=== PATIENT | male | born 1970 | race Caucasian/White ===

== ENCOUNTER 2019-05-04 13:21 | Inpatient (IN) | payer BC ==
[~2019-05-04] VITALS: Ht 170.2 cm; Wt 90.7 kg
[2019-05-04] MEDS ORDERED: IV NORMAL SALINE 1000ML BAG 1,000 ML IV SCH (13:35)
[2019-05-04 13:54] LABS: BASO % 1 % (0-3); EOS # 0.1 x10^3/uL (0.0-0.7); EOS % 1 % (0-3); HEMATOCRIT 40.3 % (39.0-53.0); HEMOGLOBIN 13.9 g/dL (13.0-17.5); LYMPH # 2.6 x10^3/uL (1.0-4.8); LYMPH % 58 % (24-48); MEAN CORPUSCULAR HEMOGLOBIN 35 pg (25-35); MEAN CORPUSCULAR HGB CONC 35 g/dL (31-37); MEAN CORPUSCULAR VOLUME 101 fL (79-100); MONO # 0.3 x10^3/uL (0.0-1.1); MONO % 6 % (0-9); NEUT # 1.5 x10^3/uL (1.8-7.7); NEUT % 34 % (31-73); PLATELET COUNT 280 x10^3/uL (140-400); RED CELL DISTRIBUTION WIDTH 15.5 % (11.5-14.5); WHITE BLOOD COUNT 4.5 x10^3/uL (4.0-11.0)
[2019-05-04 13:57] LABS: CALCIUM 8.5 mg/dL (8.5-10.1); CREATININE 1.1 mg/dL (0.7-1.3); GFR 70.9; POTASSIUM 3.8 mmol/L (3.5-5.1)
[2019-05-04 14:03] LABS: ALBUMIN/GLOBULIN RATIO 0.8 (1.0-1.7); TOTAL BILIRUBIN 0.4 mg/dL (0.2-1.0); TOTAL PROTEIN 6.8 g/dL (6.4-8.2)
--- NOTE | 2019-05-04 14:42 | PHYS DOC ---
Past Medical History Past Medical History: No Pertinent History, Other Additional Past Medical Histor: UNKNOWN Past Surgical History: Other Additional Past Surgical Histo: UNKNOWN Alcohol Use: Heavy Drug Use: None Adult General Chief Complaint Chief Complaint: ALCOHOL INTOXICATION HPI HPI Patient is a 49-year-old male who presents via EMS with report of alcohol intoxication and complaints of chest discomfort. Upon arrival, patient indicating that he is not having any chest pain but he is having some epigastric abdominal discomfort. He rates that pain is very mild. He denies any nausea or vomiting. He does admit to having drank quite a bit of alcohol but states that it was less than a pint of vodka. He denies any nausea or vomiting. Additional history is limited as patient is intoxicated and is poor historian.[] Review of Systems Review of Systems Constitutional: Denies fever or chills [] Respiratory: Denies cough or shortness of breath [] Cardiovascular: No additional information not addressed in HPI [] GI: Complains of epigastric pain without vomiting or diarrhea [] Integument: Denies rash or skin lesions [] Neurologic: Denies headache, focal weakness or sensory changes [] All other systems were reviewed and found to be within normal limits, except as documented in this note. Current Medications Current Medications Current Medications Medications (Trade) Dose Ordered Sig/Ranjeet Start Time Stop Time Status Last Admin Dose Admin Lorazepam (Ativan Inj) 1 mg 1X ONCE 05/04/19 15:30 05/04/19 15:31 DC 05/04/19 15:49 1 MG Sodium Chloride 1,000 ml @ 1,000 mls/hr Q1H 05/04/19 13:35 05/04/19 14:34 DC 05/04/19 13:55 1,000 MLS/HR Allergies Allergies Allergies Coded Allergies Type Severity Reaction Last Updated Verified No Known Drug Allergies 05/04/19 No Physical Exam Physical Exam Constitutional: Well developed, well nourished, no acute distress, with strong smell of alcohol on breath. [] HENT: Normocephalic, atraumatic, bilateral external ears normal, oropharynx moist, no oral exudates, nose normal. [] Eyes: PERRLA, EOMI, conjunctiva normal, no discharge. [] Neck: Normal range of motion, no tenderness, supple, no stridor. [] Cardiovascular: Regular rate and rhythm[] Lungs & Thorax: Bilateral breath sounds clear to auscultation [] Abdomen: Bowel sounds normal, soft, with mild epigastric tenderness. [] Skin: Warm, dry, no erythema, no rash. [] Extremities: No tenderness, no cyanosis, no clubbing, ROM intact. [] Neurologic: Awake and alert, no focal deficits noted. [] Current Patient Data Vital Signs Vital Signs Date Time Temp Pulse Resp B/P (MAP) Pulse Ox O2 Delivery O2 Flow Rate FiO2 05/04/19 13:21 97.9 94 16 149/57 (87) 94 Room Air 97.9 Lab Values Laboratory Tests Test 05/04/19 13:30 White Blood Count 4.5 x10^3/uL (4.0-11.0) Red Blood Count 4.00 x10^6/uL (4.30-5.70) L Hemoglobin 13.9 g/dL (13.0-17.5) Hematocrit 40.3 % (39.0-53.0) Mean Corpuscular Volume 101 fL (79-100) H Mean Corpuscular Hemoglobin 35 pg (25-35) Mean Corpuscular Hemoglobin Concent 35 g/dL (31-37) Red Cell Distribution Width 15.5 % (11.5-14.5) H Platelet Count 280 x10^3/uL (140-400) Neutrophils (%) (Auto) 34 % (31-73) Lymphocytes (%) (Auto) 58 % (24-48) H Monocytes (%) (Auto) 6 % (0-9) Eosinophils (%) (Auto) 1 % (0-3) Basophils (%) (Auto) 1 % (0-3) Neutrophils # (Auto) 1.5 x10^3/uL (1.8-7.7) L Lymphocytes # (Auto) 2.6 x10^3/uL (1.0-4.8) Monocytes # (Auto) 0.3 x10^3/uL (0.0-1.1) Eosinophils # (Auto) 0.1 x10^3/uL (0.0-0.7) Basophils # (Auto) 0.0 x10^3/uL (0.0-0.2) Sodium Level 144 mmol/L (136-145) Potassium Level 3.8 mmol/L (3.5-5.1) Chloride Level 109 mmol/L (98-107) H Carbon Dioxide Level 25 mmol/L (21-32) Anion Gap 10 (6-14) Blood Urea Nitrogen 13 mg/dL (8-26) Creatinine 1.1 mg/dL (0.7-1.3) Estimated GFR (Cockcroft-Gault) 70.9 BUN/Creatinine Ratio 12 (6-20) Glucose Level 121 mg/dL (70-99) H Calcium Level 8.5 mg/dL (8.5-10.1) Total Bilirubin 0.4 mg/dL (0.2-1.0) Aspartate Amino Transferase (AST) 23 U/L (15-37) Alanine Aminotransferase (ALT) 34 U/L (16-63) Alkaline Phosphatase 62 U/L (46-116) Ammonia 64 mcmol/L (11-34) H Total Protein 6.8 g/dL (6.4-8.2) Albumin 3.0 g/dL (3.4-5.0) L Albumin/Globulin Ratio 0.8 (1.0-1.7) L Lipase 115 U/L (73-393) Ethyl Alcohol Level 463 mg/dL (0-10) *H Laboratory Tests 05/04/19 13:30 Laboratory Tests 05/04/19 13:30 EKG EKG [] Radiology/Procedures Radiology/Procedures [] Course & Med Decision Making Course & Med Decision Making Pertinent Labs and Imaging studies reviewed. (See chart for details) [] Dragon Disclaimer Dragon Disclaimer This electronic medical record was generated, in whole or in part, using a voice recognition dictation system. Departure Departure Impression: Primary Impression: Hepatic encephalopathy Additional Impression: Alcohol intoxication Disposition: 09 ADMITTED INPATIENT Admitting Physician: LAUREN (Dr. Canales) Condition: GOOD Referrals: ALISSA ANDERSON (PCP) Problem Qualifiers Additional Impression: Alcohol intoxication Complication of substance-induced condition: with unspecified complication Qualified Codes: F10.929 - Alcohol use, unspecified with intoxication, unspecified KRISTINE BAEZ Jr. DO May 04, 2019 14:42
[2019-05-04] MEDS ORDERED: ONDANSETRON PF 4 MG/2 ML VIAL. IV PRN (16:15)
[2019-05-04 16:24] LABS: PROTHROMBIN TIME PATIENT 12.1 SEC (11.7-14.0)
[2019-05-04 18:49] VITALS: BP 141/73
--- NOTE | 2019-05-04 20:34 | HP ---
ADMIT DATE: 05/04/2019 CHIEF COMPLAINT: Alcohol intoxication. HISTORY OF PRESENT ILLNESS: The patient is a pleasant 49-year-old male who presented to the ER with alcohol intoxication. He apparently had some chest discomfort. I think his parents brought him in. When he got here, he has got an alcohol level of 463. He indeed is drunk. His cardiac enzymes are negative. He is a little agitated, but given some Ativan. Now, he is snoring. I discussed the case with ER physician. We are going to admit the patient and do alcohol protocol. PAST MEDICAL HISTORY: Alcoholism, but apparently he does not drink regularly, but his dad states he has binges. ALLERGIES: None. FAMILY HISTORY: Hypertension. SOCIAL HISTORY: Apparently, he drinks vodka, but intermittently. 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 He lives at home with his parents, I believe. MEDICATIONS: Reviewed, please refer to the MRAD. REVIEW OF SYSTEMS: Unable to obtain. The patient is sleeping. PHYSICAL EXAMINATION: VITALS: Within normal limits and are stable. GENERAL: No apparent distress. Alert and oriented. HEENT: Head is normocephalic, atraumatic, pupils were equally round and reactive to light and accommodation. NECK: Supple, no JVD, no thyromegaly was noted. LUNGS: Clear to auscultation in all lung vera without rhonchi or wheezing. HEART: RRR, S1, S2 present. Peripheral pulses intact, no obvious murmurs were noted. ABDOMEN: Soft, nontender. Positive bowel sounds no organomegaly, normal bowel sounds. EXTREMITIES: Without any cyanosis, clubbing, or edema. Pedal pulses intact, Homans sign is negative. NEUROLOGIC: He is snoring. PSYCHIATRIC: Normal affect, normal mood. Stable. SKIN: No ulcerations or rashes, good skin turgor, no jaundice. VASCULAR: Good capillary refill, neurovascular bundle appears to be intact. LABORATORY DATA: His INR is 1 and his ammonia level was 64. The patient has been admitted. ASSESSMENT AND PLAN: Alcohol intoxication and elevated ammonia level. Perhaps he may have an element of hepatic encephalopathy. We will use p.r.n. benzos. DVT prophylaxis. Home meds, IV fluids, full code, q. 4 hours neuro checks. I talked to the nurse few minutes ago. He is apparently not satting in the dilan, he is in the 80s. We are going to try some BiPAP too. NATHAN PATRICIA DO DR: SISSY/charleen JOB#: [id number] / [id number]
[2019-05-04] MEDS: LACTOBACILLUS RHAMNOSUS GG 1 CAPSULE. PO SCH (20:52)
[2019-05-04] MEDS: IV NORMAL SALINE 1000ML BAG 1,000 ML IV SCH (20:52)
[2019-05-04 23:12] VITALS: BP 125/79
[2019-05-05] MEDS ORDERED: metoprolol (00:02)
[2019-05-05] MEDS ORDERED: citalopram (00:02)
[2019-05-05] MEDS ORDERED: AMLODIP (00:02)
[2019-05-05] MEDS: IV NORMAL SALINE 1000ML BAG 1,000 ML IV SCH ×2 (00:15→08:44)
[2019-05-05 03:25] VITALS: BP 103/55
[2019-05-05 06:34] LABS: BASO % 1 % (0-3); EOS % 0 % (0-3); HEMATOCRIT 39.1 % (39.0-53.0); HEMOGLOBIN 13.3 g/dL (13.0-17.5); LYMPH # 2.6 x10^3/uL (1.0-4.8); LYMPH % 41 % (24-48); MEAN CORPUSCULAR HEMOGLOBIN 35 pg (25-35); MEAN CORPUSCULAR HGB CONC 34 g/dL (31-37); MEAN CORPUSCULAR VOLUME 102 fL (79-100); MONO # 0.3 x10^3/uL (0.0-1.1); MONO % 4 % (0-9); NEUT # 3.4 x10^3/uL (1.8-7.7); NEUT % 54 % (31-73); PLATELET COUNT 265 x10^3/uL (140-400); RED BLOOD COUNT 3.83 x10^6/uL (4.30-5.70); RED CELL DISTRIBUTION WIDTH 15.7 % (11.5-14.5); WHITE BLOOD COUNT 6.4 x10^3/uL (4.0-11.0)
[2019-05-05 06:55] LABS: CREATININE 1.1 mg/dL (0.7-1.3); GFR 70.9; POTASSIUM 3.8 mmol/L (3.5-5.1)
[2019-05-05 07:00] VITALS: BP 141/82
[2019-05-05] MEDS: LACTOBACILLUS RHAMNOSUS GG 1 CAPSULE. PO SCH ×2 (08:44→20:46)
--- NOTE | 2019-05-05 10:36 | PDOC ---
PROGRESS NOTES History of Present Illness History of Present Illness ASSESSMENT AND PLAN: severe alcohol abuse Alcohol intoxication elevated ammonia level. hepatic encephalopathy. acute hypoxic resp failure DEPRESSION HYPERTENSION admit p.r.n. benzos. DVT prophylaxis. Home meds, IV fluids, full code, q. 4 hours neuro checks. BiPAP support ALCOHOL WITHDRAWAL PROTOCOL ABD SONO LACTULOSE 20CC BID GI CONSULT long discussion in room with parents and sister, need for treatment, AA// PAT TEAM CONSULT 38 min pt exam, chart review, > 50% of time spent with exam, chart review, pt care coordination Vitals Vitals Vital Signs Date Time Temp Pulse Resp B/P (MAP) Pulse Ox O2 Delivery O2 Flow Rate FiO2 05/05/19 08:00 Room Air 05/05/19 07:00 97.7 97 16 141/82 (101) 99 3.0 97.7 Physical Exam Physical Exam GENERAL: No apparent distress. Alert and oriented. SAD AFFECT HEENT: Head is normocephalic, atraumatic, pupils were equally round and reactive to light and accommodation. NECK: Supple, no JVD, no thyromegaly was noted. LUNGS: Clear to auscultation in all lung vera without rhonchi or wheezing. HEART: RRR, S1, S2 present. Peripheral pulses intact, no obvious murmurs were noted. ABDOMEN: Soft, nontender. Positive bowel sounds no organomegaly, normal bowel sounds. EXTREMITIES: Without any cyanosis, clubbing, or edema. Pedal pulses intact, Homans sign is negative. NEUROLOGIC: He is snoring. PSYCHIATRIC: Normal affect, normal mood. Stable. SKIN: No ulcerations or rashes, good skin turgor, no jaundice. VASCULAR: Good capillary refill, neurovascular bundle appears to be intact. General: Alert, Oriented X3, Cooperative, No acute distress Heart: Regular rate, Normal S1, Normal S2, No murmurs Lungs: Clear Abdomen: Normal bowel sounds, Soft, No tenderness Extremities: No cyanosis Labs LABS Laboratory Tests Test 05/04/19 13:30 05/04/19 18:34 05/05/19 05:18 White Blood Count 4.5 x10^3/uL (4.0-11.0) 6.4 x10^3/uL (4.0-11.0) Red Blood Count 4.00 x10^6/uL (4.30-5.70) 3.83 x10^6/uL (4.30-5.70) Hemoglobin 13.9 g/dL (13.0-17.5) 13.3 g/dL (13.0-17.5) Hematocrit 40.3 % (39.0-53.0) 39.1 % (39.0-53.0) Mean Corpuscular Volume 101 fL (79-100) 102 fL (79-100) Mean Corpuscular Hemoglobin 35 pg (25-35) 35 pg (25-35) Mean Corpuscular Hemoglobin Concent 35 g/dL (31-37) 34 g/dL (31-37) Red Cell Distribution Width 15.5 % (11.5-14.5) 15.7 % (11.5-14.5) Platelet Count 280 x10^3/uL (140-400) 265 x10^3/uL (140-400) Neutrophils (%) (Auto) 34 % (31-73) 54 % (31-73) Lymphocytes (%) (Auto) 58 % (24-48) 41 % (24-48) Monocytes (%) (Auto) 6 % (0-9) 4 % (0-9) Eosinophils (%) (Auto) 1 % (0-3) 0 % (0-3) Basophils (%) (Auto) 1 % (0-3) 1 % (0-3) Neutrophils # (Auto) 1.5 x10^3/uL (1.8-7.7) 3.4 x10^3/uL (1.8-7.7) Lymphocytes # (Auto) 2.6 x10^3/uL (1.0-4.8) 2.6 x10^3/uL (1.0-4.8) Monocytes # (Auto) 0.3 x10^3/uL (0.0-1.1) 0.3 x10^3/uL (0.0-1.1) Eosinophils # (Auto) 0.1 x10^3/uL (0.0-0.7) 0.0 x10^3/uL (0.0-0.7) Basophils # (Auto) 0.0 x10^3/uL (0.0-0.2) 0.0 x10^3/uL (0.0-0.2) Prothrombin Time 12.1 SEC (11.7-14.0) Prothromb Time International Ratio 0.9 (0.8-1.1) Sodium Level 144 mmol/L (136-145) 148 mmol/L (136-145) Potassium Level 3.8 mmol/L (3.5-5.1) 3.8 mmol/L (3.5-5.1) Chloride Level 109 mmol/L (98-107) 112 mmol/L (98-107) Carbon Dioxide Level 25 mmol/L (21-32) 26 mmol/L (21-32) Anion Gap 10 (6-14) 10 (6-14) Blood Urea Nitrogen 13 mg/dL (8-26) 18 mg/dL (8-26) Creatinine 1.1 mg/dL (0.7-1.3) 1.1 mg/dL (0.7-1.3) Estimated GFR (Cockcroft-Gault) 70.9 70.9 BUN/Creatinine Ratio 12 (6-20) Glucose Level 121 mg/dL (70-99) 95 mg/dL (70-99) Calcium Level 8.5 mg/dL (8.5-10.1) 8.0 mg/dL (8.5-10.1) Total Bilirubin 0.4 mg/dL (0.2-1.0) Aspartate Amino Transf (AST/SGOT) 23 U/L (15-37) Alanine Aminotransferase (ALT/SGPT) 34 U/L (16-63) Alkaline Phosphatase 62 U/L (46-116) Ammonia 64 mcmol/L (11-34) Total Protein 6.8 g/dL (6.4-8.2) Albumin 3.0 g/dL (3.4-5.0) Albumin/Globulin Ratio 0.8 (1.0-1.7) Lipase 115 U/L (73-393) Ethyl Alcohol Level 463 mg/dL (0-10) Glucose (Fingerstick) 250 mg/dL (70-99) Assessment and Plan Assessmemt and Plan Problems Medical Problems: (1) Alcohol intoxication Status: Acute (2) Hepatic encephalopathy Status: Acute Comment Review of Relevant I have reviewed the following items jj (where applicable) has been applied. Labs Laboratory Tests Test 05/04/19 13:30 05/04/19 18:34 05/05/19 05:18 White Blood Count 4.5 x10^3/uL (4.0-11.0) 6.4 x10^3/uL (4.0-11.0) Red Blood Count 4.00 x10^6/uL (4.30-5.70) 3.83 x10^6/uL (4.30-5.70) Hemoglobin 13.9 g/dL (13.0-17.5) 13.3 g/dL (13.0-17.5) Hematocrit 40.3 % (39.0-53.0) 39.1 % (39.0-53.0) Mean Corpuscular Volume 101 fL (79-100) 102 fL (79-100) Mean Corpuscular Hemoglobin 35 pg (25-35) 35 pg (25-35) Mean Corpuscular Hemoglobin Concent 35 g/dL (31-37) 34 g/dL (31-37) Red Cell Distribution Width 15.5 % (11.5-14.5) 15.7 % (11.5-14.5) Platelet Count 280 x10^3/uL (140-400) 265 x10^3/uL (140-400) Neutrophils (%) (Auto) 34 % (31-73) 54 % (31-73) Lymphocytes (%) (Auto) 58 % (24-48) 41 % (24-48) Monocytes (%) (Auto) 6 % (0-9) 4 % (0-9) Eosinophils (%) (Auto) 1 % (0-3) 0 % (0-3) Basophils (%) (Auto) 1 % (0-3) 1 % (0-3) Neutrophils # (Auto) 1.5 x10^3/uL (1.8-7.7) 3.4 x10^3/uL (1.8-7.7) Lymphocytes # (Auto) 2.6 x10^3/uL (1.0-4.8) 2.6 x10^3/uL (1.0-4.8) Monocytes # (Auto) 0.3 x10^3/uL (0.0-1.1) 0.3 x10^3/uL (0.0-1.1) Eosinophils # (Auto) 0.1 x10^3/uL (0.0-0.7) 0.0 x10^3/uL (0.0-0.7) Basophils # (Auto) 0.0 x10^3/uL (0.0-0.2) 0.0 x10^3/uL (0.0-0.2) Prothrombin Time 12.1 SEC (11.7-14.0) Prothromb Time International Ratio 0.9 (0.8-1.1) Sodium Level 144 mmol/L (136-145) 148 mmol/L (136-145) Potassium Level 3.8 mmol/L (3.5-5.1) 3.8 mmol/L (3.5-5.1) Chloride Level 109 mmol/L (98-107) 112 mmol/L (98-107) Carbon Dioxide Level 25 mmol/L (21-32) 26 mmol/L (21-32) Anion Gap 10 (6-14) 10 (6-14) Blood Urea Nitrogen 13 mg/dL (8-26) 18 mg/dL (8-26) Creatinine 1.1 mg/dL (0.7-1.3) 1.1 mg/dL (0.7-1.3) Estimated GFR (Cockcroft-Gault) 70.9 70.9 BUN/Creatinine Ratio 12 (6-20) Glucose Level 121 mg/dL (70-99) 95 mg/dL (70-99) Calcium Level 8.5 mg/dL (8.5-10.1) 8.0 mg/dL (8.5-10.1) Total Bilirubin 0.4 mg/dL (0.2-1.0) Aspartate Amino Transf (AST/SGOT) 23 U/L (15-37) Alanine Aminotransferase (ALT/SGPT) 34 U/L (16-63) Alkaline Phosphatase 62 U/L (46-116) Ammonia 64 mcmol/L (11-34) Total Protein 6.8 g/dL (6.4-8.2) Albumin 3.0 g/dL (3.4-5.0) Albumin/Globulin Ratio 0.8 (1.0-1.7) Lipase 115 U/L (73-393) Ethyl Alcohol Level 463 mg/dL (0-10) Glucose (Fingerstick) 250 mg/dL (70-99) Laboratory Tests Test 05/04/19 13:30 05/04/19 18:34 05/05/19 05:18 White Blood Count 4.5 x10^3/uL (4.0-11.0) 6.4 x10^3/uL (4.0-11.0) Red Blood Count 4.00 x10^6/uL (4.30-5.70) 3.83 x10^6/uL (4.30-5.70) Hemoglobin 13.9 g/dL (13.0-17.5) 13.3 g/dL (13.0-17.5) Hematocrit 40.3 % (39.0-53.0) 39.1 % (39.0-53.0) Mean Corpuscular Volume 101 fL (79-100) 102 fL (79-100) Mean Corpuscular Hemoglobin 35 pg (25-35) 35 pg (25-35) Mean Corpuscular Hemoglobin Concent 35 g/dL (31-37) 34 g/dL (31-37) Red Cell Distribution Width 15.5 % (11.5-14.5) 15.7 % (11.5-14.5) Platelet Count 280 x10^3/uL (140-400) 265 x10^3/uL (140-400) Neutrophils (%) (Auto) 34 % (31-73) 54 % (31-73) Lymphocytes (%) (Auto) 58 % (24-48) 41 % (24-48) Monocytes (%) (Auto) 6 % (0-9) 4 % (0-9) Eosinophils (%) (Auto) 1 % (0-3) 0 % (0-3) Basophils (%) (Auto) 1 % (0-3) 1 % (0-3) Neutrophils # (Auto) 1.5 x10^3/uL (1.8-7.7) 3.4 x10^3/uL (1.8-7.7) Lymphocytes # (Auto) 2.6 x10^3/uL (1.0-4.8) 2.6 x10^3/uL (1.0-4.8) Monocytes # (Auto) 0.3 x10^3/uL (0.0-1.1) 0.3 x10^3/uL (0.0-1.1) Eosinophils # (Auto) 0.1 x10^3/uL (0.0-0.7) 0.0 x10^3/uL (0.0-0.7) Basophils # (Auto) 0.0 x10^3/uL (0.0-0.2) 0.0 x10^3/uL (0.0-0.2) Prothrombin Time 12.1 SEC (11.7-14.0) Prothromb Time International Ratio 0.9 (0.8-1.1) Sodium Level 144 mmol/L (136-145) 148 mmol/L (136-145) Potassium Level 3.8 mmol/L (3.5-5.1) 3.8 mmol/L (3.5-5.1) Chloride Level 109 mmol/L (98-107) 112 mmol/L (98-107) Carbon Dioxide Level 25 mmol/L (21-32) 26 mmol/L (21-32) Anion Gap 10 (6-14) 10 (6-14) Blood Urea Nitrogen 13 mg/dL (8-26) 18 mg/dL (8-26) Creatinine 1.1 mg/dL (0.7-1.3) 1.1 mg/dL (0.7-1.3) Estimated GFR (Cockcroft-Gault) 70.9 70.9 BUN/Creatinine Ratio 12 (6-20) Glucose Level 121 mg/dL (70-99) 95 mg/dL (70-99) Calcium Level 8.5 mg/dL (8.5-10.1) 8.0 mg/dL (8.5-10.1) Total Bilirubin 0.4 mg/dL (0.2-1.0) Aspartate Amino Transf (AST/SGOT) 23 U/L (15-37) Alanine Aminotransferase (ALT/SGPT) 34 U/L (16-63) Alkaline Phosphatase 62 U/L (46-116) Ammonia 64 mcmol/L (11-34) Total Protein 6.8 g/dL (6.4-8.2) Albumin 3.0 g/dL (3.4-5.0) Albumin/Globulin Ratio 0.8 (1.0-1.7) Lipase 115 U/L (73-393) Ethyl Alcohol Level 463 mg/dL (0-10) Glucose (Fingerstick) 250 mg/dL (70-99) Medications Current Medications Sodium Chloride 1,000 ml @ 1,000 mls/hr Q1H IV Last administered on 05/04/19at 13:55; Start 05/04/19 at 13:35; Stop 05/04/19 at 14:34; Status DC Lorazepam (Ativan Inj) 1 mg 1X ONCE IV Last administered on 05/04/19at 15:49; Start 05/04/19 at 15:30; Stop 05/04/19 at 15:31; Status DC Ondansetron HCl (Zofran) 4 mg PRN Q8HRS PRN IV NAUSEA/VOMITING; Start 05/04/19 at 16:15; Stop 05/05/19 at 16:14 Sodium Chloride 1,000 ml @ 125 mls/hr Q8H IV Last administered on 05/05/19at 08:44; Start 05/04/19 at 16:15; Stop 05/05/19 at 16:14 Lactobacillus Rhamnosus (Culturelle) 1 cap BID PO Last administered on 05/05/19at 08:44; Start 05/04/19 at 21:00 Active Scripts Active Reported [citalopram] DAILY [amlodip] DAILY [metoprolol] BID Vitals/I & O Vital Sign - Last 24 Hours 05/04/19 05/04/19 05/04/19 05/04/19 13:21 14:30 15:00 16:00 Temp 97.9 97.9 Pulse 94 88 92 91 Resp 16 22 20 22 B/P (MAP) 149/57 (87) 135/84 (101) 137/94 (108) 124/75 (91) Pulse Ox 94 91 95 94 O2 Delivery Room Air Room Air Room Air Room Air 05/04/19 05/04/19 05/04/19 05/04/19 16:30 16:55 17:01 18:49 Temp 97.6 97.6 Pulse 87 113 Resp 18 22 20 18 B/P (MAP) 130/78 (95) 141/73 (95) Pulse Ox 95 69 92 93 O2 Delivery Room Air Nasal Cannula Nasal Cannula Nasal Cannula O2 Flow Rate 2.0 2.0 3.0 05/04/19 05/04/19 05/05/19 05/05/19 20:00 23:12 03:25 07:00 Temp 97.7 97.6 97.7 97.7 97.6 97.7 Pulse 89 93 97 Resp 20 20 16 B/P (MAP) 125/79 (94) 103/55 (71) 141/82 (101) Pulse Ox 96 95 99 O2 Delivery Nasal Cannula Nasal Cannula Nasal Cannula Nasal Cannula O2 Flow Rate 3.0 3.0 3.0 3.0 05/05/19 08:00 O2 Delivery Room Air Intake and Output 05/04/19 05/04/19 05/05/19 14:59 22:59 06:59 Intake Total 1000 ml 50 ml 400 ml Balance 1000 ml 50 ml 400 ml MARLENE CUETO MD May 05, 2019 10:36
[2019-05-05 11:00] VITALS: BP 157/83
[2019-05-05] MEDS ORDERED: CITA20TA9 PO (11:49)
[2019-05-05] MEDS ORDERED: METO50TA6 PO (11:49)
[2019-05-05] MEDS ORDERED: AMLO5TAB10 PO (11:49)
[2019-05-05] MEDS ORDERED: LORazepam 0.5 MG TABLET PO PRN (12:15)
[2019-05-05] MEDS ORDERED: SODIUM PHOSPHATES 19/7GM 133 ML ENEMA. PR PRN (12:15)
[2019-05-05] MEDS ORDERED: guaiFENesin ORAL 200 MG/10 ML LIQUID. PO PRN (12:15)
[2019-05-05] MEDS ORDERED: DOCUSATE SODIUM 100 MG CAPSULE. PO PRN (12:15)
[2019-05-05] MEDS ORDERED: diphenhydrAMINE 50 MG/ML VIAL IVP PRN (12:15)
[2019-05-05] MEDS ORDERED: MAG HYDROX/ALUMINUM HYD/SIMETH 30 ML ORAL.SUSP PO PRN (12:15)
[2019-05-05] MEDS ORDERED: 0.9 % SODIUM CHLORIDE 10 ML DISP.SYRIN. IV PRN (12:15)
[2019-05-05] MEDS ORDERED: ACETAMINOPHEN 325 MG TABLET. PO PRN (12:15)
[2019-05-05] MEDS ORDERED: HALOPERIDOL LACTATE 5 MG/ML VIAL. IVP PRN (12:15)
[2019-05-05] MEDS ORDERED: LORazepam 1 MG TABLET PO PRN ×2 (12:15)
[2019-05-05] MEDS ORDERED: cloNIDine HCL 0.1 MG TABLET PO PRN ×2 (12:15)
[2019-05-05] MEDS ORDERED: ONDANSETRON PF 4 MG/2 ML VIAL. IV PRN (12:15)
[2019-05-05 12:34] LABS: AMPHETAMINE/METHAMPHETAMINE NEG (NEG); BARBITURATES NEG (NEG); BENZODIAZEPINES NEG (NEG); CANNABINOIDS NEG (NEG); COCAINE NEG (NEG); METHADONE NEG (NEG); OPIATES NEG (NEG); PHENCYCLIDINE NEG (NEG)
[2019-05-05] MEDS ORDERED: MULTIVIT INFUSN,ADULT 4,VIT K 10 ML, THIAMINE INJ 100 MG, FOLIC ACID INJ 1 MG in IV NOR... IV ONE (13:00)
[2019-05-05] MEDS: ENOXAPARIN 40 MG/0.4 ML SYRINGE. SQ SCH (13:52)
[2019-05-05] MEDS: CITALOPRAM 20 MG TABLET. PO SCH (13:53)
[2019-05-05] MEDS: amLODIPine BESYLATE 5 MG TABLET PO SCH (13:53)
[2019-05-05] MEDS: METOPROLOL SUCC 24HR ER 50 MG TAB.ER.24H. PO SCH (13:53)
[2019-05-05] MEDS: LACTULOSE 20 GM/30 ML SOLUTION. PO SCH ×2 (13:54→20:46)
[2019-05-05] MEDS: FAMOTIDINE 20 MG TABLET. PO SCH ×2 (13:55→20:46)
[2019-05-05 15:00] VITALS: BP 155/78
[2019-05-05] MEDS: IPRATRPIUM/ALBUTEROL 0.5/2.5MG 3 ML NEBU. NEB SCH ×4 (15:58→23:24)
[2019-05-05] MEDS ORDERED: LACTULOSE 20 GM/30 ML SOLUTION. PO ONE (16:00)
--- NOTE | 2019-05-05 17:18 | PDOC2 ---
CONSULT Date of Consult Date of Consult DATE: 05/05/19 TIME: 17:05 Reason for Consult Reason for Consult: Elevated ammonia level, alcohol intoxication, syncope History of Present Illness Reason for Visit: This is a 49-year-old gentleman who does admit to fairly regular but not daily alcohol use. He denies prior history of alcohol-related syncope or seizures. He also denies prior history of liver disease or abnormal liver function studies. He denies dysphagia, abdominal pain, heartburn, change in bowel pattern, constipation, nausea, vomiting, GI bleeding. He was admitted after being found passed out walking the dog and on admission had an elevated ammonia level with normal liver function studies and an elevated alcohol level as well. Although he was apparently somewhat somnolent earlier he is more lucid now and was able to answer questions appropriately. Current Problem List Problem List Problems Medical Problems: (1) Alcohol intoxication Status: Acute (2) Hepatic encephalopathy Status: Acute Current Medications Current Medications Current Medications Sodium Chloride 1,000 ml @ 1,000 mls/hr Q1H IV Last administered on 05/04/19at 13:55; Start 05/04/19 at 13:35; Stop 05/04/19 at 14:34; Status DC Lorazepam (Ativan Inj) 1 mg 1X ONCE IV Last administered on 05/04/19at 15:49; Start 05/04/19 at 15:30; Stop 05/04/19 at 15:31; Status DC Ondansetron HCl (Zofran) 4 mg PRN Q8HRS PRN IV NAUSEA/VOMITING Last administered on 05/05/19at 10:45; Start 05/04/19 at 16:15; Stop 05/05/19 at 12:19; Status DC Sodium Chloride 1,000 ml @ 125 mls/hr Q8H IV Last administered on 05/05/19at 08:44; Start 05/04/19 at 16:15; Stop 05/05/19 at 16:14; Status DC Lactobacillus Rhamnosus (Culturelle) 1 cap BID PO Last administered on at 08:44; Start 05/04/19 at 21:00 Multivitamins 10 ml/Thiamine HCl 100 mg/Folic Acid 1 mg/Sodium Chloride 1,011.2 ml @ 100 mls/ hr 1X ONCE IV Last administered on 05/05/19at 13:51; Start 05/05/19 at 13:00; Stop 05/05/19 at 23:06 Multivitamins (Thera M Plus) 1 tab DAILY PO ; Start 05/06/19 at 09:00 Folic Acid (Folic Acid) 1 mg DAILY PO ; Start 05/06/19 at 09:00 Thiamine HCl 100 mg/Dextrose 51 ml @ 100 mls/hr DAILY IV ; Start 05/06/19 at 09:00; Stop 05/10/19 at 09:31; Status UNV Lorazepam (Ativan) 4 mg PRN Q1HR PRN PO For CIWA 8-14; Start 05/05/19 at 12:15 Lorazepam (Ativan) 8 mg PRN Q1HR PRN PO For CIWA 15 or greater; Start 05/05/19 at 12:15 Lorazepam (Ativan Inj) 2 mg PRN Q1HR PRN IV For CIWA 8-14; Start 05/05/19 at 12:15 Lorazepam (Ativan Inj) 4 mg PRN Q1HR PRN IV For CIWA 15 or greater; Start 05/05/19 at 12:15 Haloperidol Lactate (Haldol Inj) 5 mg PRN Q4HRS PRN IVP Arriola llucinatns,Confusn,Delirium; Start 05/05/19 at 12:15 Diphenhydramine HCl (Benadryl) 25 mg PRN Q15MIN PRN IVP EPS symptoms 2'Haldol admin; Start 05/05/19 at 12:15 Clonidine HCl (Catapres) 0.1 mg PRN Q1HR PRN PO SBP > 180 or DBP > 100, MRX3; Start 05/05/19 at 12:15 Lorazepam (Ativan Inj) 2 mg PRN Q15MIN PRN IV SEE COMMENTS; Start 05/05/19 at 12:15; Stop 05/05/19 at 12:12; Status DC Lorazepam (Ativan Inj) 4 mg PRN Q15MIN PRN IV SEE COMMENTS; Start 05/05/19 at 12:15; Stop 05/05/19 at 12:12; Status DC Amlodipine Besylate (Norvasc) 5 mg DAILY PO Last administered on 05/05/19at 13:53; Start 05/05/19 at 13:00 Citalopram Hydrobromide (CeleXA) 20 mg DAILY PO Last administered on 05/05/19at 13:53; Start 05/05/19 at 13:00 Metoprolol Succinate (Toprol Xl) 50 mg DAILY PO Last administered on 05/05/19at 13:53; Start 05/05/19 at 13:00 Famotidine (Pepcid) 20 mg BID PO Last administered on 05/05/19at 13:55; Start 05/05/19 at 13:00 Lactulose (Lactulose) 20 gm BID PO Last administered on 05/05/19at 13:54; Start 05/05/19 at 13:00 Thiamine Mononitrate (Vitamin B-1) 100 mg DAILY PO ; Start 05/06/19 at 09:00 Sodium Chloride (Normal Saline Flush) 3 ml QSHIFT PRN IV AFTER MEDS AND BLOOD DRAWS; Start 05/05/19 at 12:15 Ondansetron HCl (Zofran) 4 mg PRN Q4HRS PRN IV NAUSEA/VOMITING; Start 05/05/19 at 12:15 Acetaminophen (Tylenol) 650 mg PRN Q4HRS PRN PO TEMP OVER 100.4F OR MILD PAIN; Start 05/05/19 at 12:15 Al Hydroxide/Mg Hydroxide (Mylanta Plus Xs) 30 ml PRN DAILY PRN PO HEARTBURN / GAS; Start 05/05/19 at 12:15 Clonidine HCl (Catapres) 0.1 mg PRN Q6HRS PRN PO SBP>160 OR DBP>90; Start 05/05/19 at 12:15 Sodium Monofluorophosphate (Fleet Adult) 133 ml PRN DAILY PRN CA CONSTIPATION; Start 05/05/19 at 12:15 Docusate Sodium (Colace) 100 mg PRN BID PRN PO CONSTIPATION; Start 05/05/19 at 12:15 Albuterol/ Ipratropium (Duoneb) 3 ml Q4HRS NEB Last administered on 05/05/19at 15:58; Start 05/05/19 at 13:00 Guaifenesin (Robitussin) 200 mg PRN Q4HRS PRN PO COUGH; Start 05/05/19 at 12:15 Lorazepam (Ativan) 0.5 mg PRN Q4HRS PRN PO ANXIETY / AGITATION Last administered on 05/05/19at 15:03; Start 05/05/19 at 12:15 Lorazepam (Ativan Inj) 2 mg PRN Q4HRS PRN IV ANXIETY / AGITATION; Start 05/05/19 at 12:15 Enoxaparin Sodium (Lovenox 40mg Syringe) 40 mg DAILY SQ Last administered on 05/05/19at 13:52; Start 05/05/19 at 12:30 Lactulose (Lactulose) 30 gm 1X ONCE PO ; Start 05/05/19 at 16:00; Stop 05/05/19 at 16:01; Status DC Active Scripts Active Reported Celexa (Citalopram Hydrobromide) 20 Mg Tablet 1 Tab PO DAILY Metoprolol Tartrate 50 Mg Tablet 1 Tab PO DAILY Amlodipine Besylate 5 Mg Tablet 5 Mg PO DAILY [citalopram] DAILY [amlodip] DAILY [metoprolol] BID Allergies Allergies: Coded Allergies: No Known Drug Allergies (Unverified , 05/04/19) Vitals VITALS Vital Signs Date Time Temp Pulse Resp B/P (MAP) Pulse Ox O2 Delivery O2 Flow Rate FiO2 05/05/19 16:00 94 Room Air 05/05/19 15:00 98.5 99 14 155/78 (103) 3.0 98.5 Labs Labs Laboratory Tests Test 05/04/19 13:30 05/04/19 18:34 05/05/19 05:18 05/05/19 12:15 White Blood Count 4.5 x10^3/uL (4.0-11.0) 6.4 x10^3/uL (4.0-11.0) Red Blood Count 4.00 x10^6/uL (4.30-5.70) 3.83 x10^6/uL (4.30-5.70) Hemoglobin 13.9 g/dL (13.0-17.5) 13.3 g/dL (13.0-17.5) Hematocrit 40.3 % (39.0-53.0) 39.1 % (39.0-53.0) Mean Corpuscular Volume 101 fL (79-100) 102 fL (79-100) Mean Corpuscular Hemoglobin 35 pg (25-35) 35 pg (25-35) Mean Corpuscular Hemoglobin Concent 35 g/dL (31-37) 34 g/dL (31-37) Red Cell Distribution Width 15.5 % (11.5-14.5) 15.7 % (11.5-14.5) Platelet Count 280 x10^3/uL (140-400) 265 x10^3/uL (140-400) Neutrophils (%) (Auto) 34 % (31-73) 54 % (31-73) Lymphocytes (%) (Auto) 58 % (24-48) 41 % (24-48) Monocytes (%) (Auto) 6 % (0-9) 4 % (0-9) Eosinophils (%) (Auto) 1 % (0-3) 0 % (0-3) Basophils (%) (Auto) 1 % (0-3) 1 % (0-3) Neutrophils # (Auto) 1.5 x10^3/uL (1.8-7.7) 3.4 x10^3/uL (1.8-7.7) Lymphocytes # (Auto) 2.6 x10^3/uL (1.0-4.8) 2.6 x10^3/uL (1.0-4.8) Monocytes # (Auto) 0.3 x10^3/uL (0.0-1.1) 0.3 x10^3/uL (0.0-1.1) Eosinophils # (Auto) 0.1 x10^3/uL (0.0-0.7) 0.0 x10^3/uL (0.0-0.7) Basophils # (Auto) 0.0 x10^3/uL (0.0-0.2) 0.0 x10^3/uL (0.0-0.2) Prothrombin Time 12.1 SEC (11.7-14.0) Prothromb Time International Ratio 0.9 (0.8-1.1) Sodium Level 144 mmol/L (136-145) 148 mmol/L (136-145) Potassium Level 3.8 mmol/L (3.5-5.1) 3.8 mmol/L (3.5-5.1) Chloride Level 109 mmol/L (98-107) 112 mmol/L (98-107) Carbon Dioxide Level 25 mmol/L (21-32) 26 mmol/L (21-32) Anion Gap 10 (6-14) 10 (6-14) Blood Urea Nitrogen 13 mg/dL (8-26) 18 mg/dL (8-26) Creatinine 1.1 mg/dL (0.7-1.3) 1.1 mg/dL (0.7-1.3) Estimated GFR (Cockcroft-Gault) 70.9 70.9 BUN/Creatinine Ratio 12 (6-20) Glucose Level 121 mg/dL (70-99) 95 mg/dL (70-99) Calcium Level 8.5 mg/dL (8.5-10.1) 8.0 mg/dL (8.5-10.1) Total Bilirubin 0.4 mg/dL (0.2-1.0) Aspartate Amino Transf (AST/SGOT) 23 U/L (15-37) Alanine Aminotransferase (ALT/SGPT) 34 U/L (16-63) Alkaline Phosphatase 62 U/L (46-116) Ammonia 64 mcmol/L (11-34) Total Protein 6.8 g/dL (6.4-8.2) Albumin 3.0 g/dL (3.4-5.0) Albumin/Globulin Ratio 0.8 (1.0-1.7) Lipase 115 U/L (73-393) Ethyl Alcohol Level 463 mg/dL (0-10) Glucose (Fingerstick) 250 mg/dL (70-99) Urine Opiates Screen Neg (NEG) Urine Methadone Screen Neg (NEG) Urine Barbiturates Neg (NEG) Urine Phencyclidine Screen Neg (NEG) Urine Amphetamine/Methamphetamine Neg (NEG) Urine Benzodiazepines Screen Neg (NEG) Urine Cocaine Screen Neg (NEG) Urine Cannabinoids Screen Neg (NEG) Urine Ethyl Alcohol Pos (NEG) Laboratory Tests Test 05/04/19 18:34 05/05/19 05:18 05/05/19 12:15 Glucose (Fingerstick) 250 mg/dL (70-99) White Blood Count 6.4 x10^3/uL (4.0-11.0) Red Blood Count 3.83 x10^6/uL (4.30-5.70) Hemoglobin 13.3 g/dL (13.0-17.5) Hematocrit 39.1 % (39.0-53.0) Mean Corpuscular Volume 102 fL (79-100) Mean Corpuscular Hemoglobin 35 pg (25-35) Mean Corpuscular Hemoglobin Concent 34 g/dL (31-37) Red Cell Distribution Width 15.7 % (11.5-14.5) Platelet Count 265 x10^3/uL (140-400) Neutrophils (%) (Auto) 54 % (31-73) Lymphocytes (%) (Auto) 41 % (24-48) Monocytes (%) (Auto) 4 % (0-9) Eosinophils (%) (Auto) 0 % (0-3) Basophils (%) (Auto) 1 % (0-3) Neutrophils # (Auto) 3.4 x10^3/uL (1.8-7.7) Lymphocytes # (Auto) 2.6 x10^3/uL (1.0-4.8) Monocytes # (Auto) 0.3 x10^3/uL (0.0-1.1) Eosinophils # (Auto) 0.0 x10^3/uL (0.0-0.7) Basophils # (Auto) 0.0 x10^3/uL (0.0-0.2) Sodium Level 148 mmol/L (136-145) Potassium Level 3.8 mmol/L (3.5-5.1) Chloride Level 112 mmol/L (98-107) Carbon Dioxide Level 26 mmol/L (21-32) Anion Gap 10 (6-14) Blood Urea Nitrogen 18 mg/dL (8-26) Creatinine 1.1 mg/dL (0.7-1.3) Estimated GFR (Cockcroft-Gault) 70.9 Glucose Level 95 mg/dL (70-99) Calcium Level 8.0 mg/dL (8.5-10.1) Urine Opiates Screen Neg (NEG) Urine Methadone Screen Neg (NEG) Urine Barbiturates Neg (NEG) Urine Phencyclidine Screen Neg (NEG) Urine Amphetamine/Methamphetamine Neg (NEG) Urine Benzodiazepines Screen Neg (NEG) Urine Cocaine Screen Neg (NEG) Urine Cannabinoids Screen Neg (NEG) Urine Ethyl Alcohol Pos (NEG) Assessment/Plan Assessment/Plan Syncope with elevated alcohol level and elevated ammonia. No prior history of significant liver disease as reported by the patient. The elevated ammonia level could be a nonspecific finding and not necessarily reflect underlying cirrhosis. A repeat of this after a dose of lactulose would be appropriate. Most of his symptoms are likely related to his alcohol level earlier and those mental status changes have resolved. He denies presently any encephalopathy presently or by history. He denies hematemesis, he denies a family history of liver disease and denies any chronic GI complaints such as heartburn, dysphagia, nausea, vomiting, change in bowel pattern or GI bleeding. Plan: Single dose of lactulose and a repeat ammonia is appropriate Ultrasound of the liver is also appropriate Since his liver function studies are normal, I will repeat them but if they remain normal than I would recommend reduction in alcohol intake or alcohol abstinence and follow-up in the outpatient setting. We discussed that he is due for a screening colonoscopy and this can be arranged in the outpatient setting. HESHAM VANCE MD May 05, 2019 17:18
[2019-05-05 19:38] VITALS: BP 145/71
--- NOTE | 2019-05-05 20:33 | RAD ---
ABDOMEN COMPLETE History: Hepatomegaly Comparison: None. Findings: Multiple sonographic images of the abdomen are submitted. There is relative coarsening of hepatic echotexture. Right lobe of liver measures about 19.3 cm longitudinal. Gallbladder is present without intraluminal abnormality, wall thickening, pericholecystic fluid. Common bile duct is within normal limits at 0.5 cm. Right kidney measured 11.9 x 5.5 x 4.8 cm. Left kidney measured 11.9 x 6.6 x 5.8 cm. There is no hydronephrosis of either kidney. There is no abnormality of the visualized pancreas. Spleen measures up to 11.1 cm, some granulomas present. Proximal abdominal aortic caliber measures up to 2.3 cm, otherwise obscured by bowel gas. There is limited segmental visualization of the inferior vena cava. Impression: 1. There is coarsening of hepatic echotexture, most likely due to steatosis. There is hepatomegaly. Electronically signed by: Kurtis Pham MD (05/05/2019 8:30 PM) [id number]
[2019-05-05 23:15] VITALS: BP 153/80
[2019-05-06 03:40] VITALS: BP 153/74
[2019-05-06] MEDS: IPRATRPIUM/ALBUTEROL 0.5/2.5MG 3 ML NEBU. NEB SCH ×6 (04:00→23:46)
[2019-05-06 04:55] LABS: BASO % 1 % (0-3); EOS % 1 % (0-3); HEMATOCRIT 38.6 % (39.0-53.0); HEMOGLOBIN 13.2 g/dL (13.0-17.5); LYMPH # 1.6 x10^3/uL (1.0-4.8); LYMPH % 27 % (24-48); MEAN CORPUSCULAR HEMOGLOBIN 35 pg (25-35); MEAN CORPUSCULAR HGB CONC 34 g/dL (31-37); MEAN CORPUSCULAR VOLUME 101 fL (79-100); MONO # 0.3 x10^3/uL (0.0-1.1); MONO % 6 % (0-9); NEUT # 3.9 x10^3/uL (1.8-7.7); NEUT % 66 % (31-73); PLATELET COUNT 202 x10^3/uL (140-400); RED BLOOD COUNT 3.82 x10^6/uL (4.30-5.70); RED CELL DISTRIBUTION WIDTH 15.1 % (11.5-14.5); WHITE BLOOD COUNT 5.8 x10^3/uL (4.0-11.0)
[2019-05-06 05:16] LABS: ALBUMIN/GLOBULIN RATIO 0.9 (1.0-1.7); CALCIUM 8.5 mg/dL (8.5-10.1); CREATININE 1.1 mg/dL (0.7-1.3); GFR 70.9; POTASSIUM 3.2 mmol/L (3.5-5.1); TOTAL BILIRUBIN 1.5 mg/dL (0.2-1.0); TOTAL PROTEIN 6.3 g/dL (6.4-8.2)
--- NOTE | 2019-05-06 06:40 | EKG ---
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
[2019-05-06 07:42] VITALS: BP 158/83
--- NOTE | 2019-05-06 08:33 | PDOC ---
PROGRESS NOTES History of Present Illness History of Present Illness ASSESSMENT AND PLAN: severe alcohol abuse Alcohol intoxication elevated ammonia level. hepatic encephalopathy. acute hypoxic resp failure DEPRESSION HYPERTENSION falls HYPOKALEMIA 05/06 Some tremor , anxiety overnight, no hallucinations admit p.r.n. benzos. DVT prophylaxis. Home meds, IV fluids, full code, q. 4 hours neuro checks. BiPAP support ALCOHOL WITHDRAWAL PROTOCOL ABD SONO LACTULOSE 20CC BID GI CONSULT neurology consult PT/OT REPLACE K 05/05long discussion in room with parents and sister, need for treatment, AA// PAT TEAM CONSULT 27 min pt exam, chart review, > 50% of time spent with exam, chart review, pt care coordination Vitals Vitals Vital Signs Date Time Temp Pulse Resp B/P (MAP) Pulse Ox O2 Delivery O2 Flow Rate FiO2 05/06/19 07:42 97.6 85 20 158/83 (108) 97 Nasal Cannula 3.0 97.6 Physical Exam Physical Exam GENERAL: No apparent distress. Alert and oriented. SAD AFFECT HEENT: Head is normocephalic, atraumatic, pupils were equally round and reactive to light and accommodation. NECK: Supple, no JVD, no thyromegaly was noted. LUNGS: Clear to auscultation in all lung vera without rhonchi or wheezing. HEART: RRR, S1, S2 present. Peripheral pulses intact, no obvious murmurs were noted. ABDOMEN: Soft, nontender. Positive bowel sounds no organomegaly, normal bowel sounds. EXTREMITIES: Without any cyanosis, clubbing, or edema. Pedal pulses intact, Homans sign is negative. NEUROLOGIC: He is snoring. PSYCHIATRIC: Normal affect, normal mood. Stable. SKIN: No ulcerations or rashes, good skin turgor, no jaundice. VASCULAR: Good capillary refill, neurovascular bundle appears to be intact. General: Alert, Oriented X3, Cooperative, No acute distress Heart: Regular rate, Normal S1, Normal S2, No murmurs Lungs: Clear Abdomen: Normal bowel sounds, Soft, No tenderness Extremities: No clubbing, No cyanosis, No edema, No tenderness/swelling Skin: No significant lesion Labs LABS ABDOMEN COMPLETE History: Hepatomegaly Comparison: None. Findings: Multiple sonographic images of the abdomen are submitted. There is relative coarsening of hepatic echotexture. Right lobe of liver measures about 19.3 cm longitudinal. Gallbladder is present without intraluminal abnormality, wall thickening, pericholecystic fluid. Common bile duct is within normal limits at 0.5 cm. Right kidney measured 11.9 x 5.5 x 4.8 cm. Left kidney measured 11.9 x 6.6 x 5.8 cm. There is no hydronephrosis of either kidney. There is no abnormality of the visualized pancreas. Spleen measures up to 11.1 cm, some granulomas present. Proximal abdominal aortic caliber measures up to 2.3 cm, otherwise obscured by bowel gas. There is limited segmental visualization of the inferior vena cava. Impression: 1. There is coarsening of hepatic echotexture, most likely due to steatosis. There is hepatomegaly. Electronically signed by: Merry Lyon MD (05/05/2019 8:30 PM) [facility] DICTATED and SIGNED BY: MERRY LYON MD DATE: 05/05/192029 Laboratory Tests Test 05/05/19 12:15 05/06/19 03:39 Urine Opiates Screen Neg (NEG) Urine Methadone Screen Neg (NEG) Urine Barbiturates Neg (NEG) Urine Phencyclidine Screen Neg (NEG) Urine Amphetamine/Methamphetamine Neg (NEG) Urine Benzodiazepines Screen Neg (NEG) Urine Cocaine Screen Neg (NEG) Urine Cannabinoids Screen Neg (NEG) Urine Ethyl Alcohol Pos (NEG) White Blood Count 5.8 x10^3/uL (4.0-11.0) Red Blood Count 3.82 x10^6/uL (4.30-5.70) Hemoglobin 13.2 g/dL (13.0-17.5) Hematocrit 38.6 % (39.0-53.0) Mean Corpuscular Volume 101 fL (79-100) Mean Corpuscular Hemoglobin 35 pg (25-35) Mean Corpuscular Hemoglobin Concent 34 g/dL (31-37) Red Cell Distribution Width 15.1 % (11.5-14.5) Platelet Count 202 x10^3/uL (140-400) Neutrophils (%) (Auto) 66 % (31-73) Lymphocytes (%) (Auto) 27 % (24-48) Monocytes (%) (Auto) 6 % (0-9) Eosinophils (%) (Auto) 1 % (0-3) Basophils (%) (Auto) 1 % (0-3) Neutrophils # (Auto) 3.9 x10^3/uL (1.8-7.7) Lymphocytes # (Auto) 1.6 x10^3/uL (1.0-4.8) Monocytes # (Auto) 0.3 x10^3/uL (0.0-1.1) Eosinophils # (Auto) 0.0 x10^3/uL (0.0-0.7) Basophils # (Auto) 0.0 x10^3/uL (0.0-0.2) Sodium Level 142 mmol/L (136-145) Potassium Level 3.2 mmol/L (3.5-5.1) Chloride Level 107 mmol/L (98-107) Carbon Dioxide Level 26 mmol/L (21-32) Anion Gap 9 (6-14) Blood Urea Nitrogen 9 mg/dL (8-26) Creatinine 1.1 mg/dL (0.7-1.3) Estimated GFR (Cockcroft-Gault) 70.9 BUN/Creatinine Ratio 8 (6-20) Glucose Level 104 mg/dL (70-99) Calcium Level 8.5 mg/dL (8.5-10.1) Total Bilirubin 1.5 mg/dL (0.2-1.0) Aspartate Amino Transf (AST/SGOT) 19 U/L (15-37) Alanine Aminotransferase (ALT/SGPT) 26 U/L (16-63) Alkaline Phosphatase 65 U/L (46-116) Ammonia 28 mcmol/L (11-34) Total Protein 6.3 g/dL (6.4-8.2) Albumin 3.0 g/dL (3.4-5.0) Albumin/Globulin Ratio 0.9 (1.0-1.7) Assessment and Plan Assessmemt and Plan Problems Medical Problems: (1) Alcohol intoxication Status: Acute (2) Hepatic encephalopathy Status: Acute Comment Review of Relevant I have reviewed the following items jj (where applicable) has been applied. Labs Laboratory Tests Test 05/04/19 13:30 05/04/19 18:34 05/05/19 05:18 05/05/19 12:15 White Blood Count 4.5 x10^3/uL (4.0-11.0) 6.4 x10^3/uL (4.0-11.0) Red Blood Count 4.00 x10^6/uL (4.30-5.70) 3.83 x10^6/uL (4.30-5.70) Hemoglobin 13.9 g/dL (13.0-17.5) 13.3 g/dL (13.0-17.5) Hematocrit 40.3 % (39.0-53.0) 39.1 % (39.0-53.0) Mean Corpuscular Volume 101 fL (79-100) 102 fL (79-100) Mean Corpuscular Hemoglobin 35 pg (25-35) 35 pg (25-35) Mean Corpuscular Hemoglobin Concent 35 g/dL (31-37) 34 g/dL (31-37) Red Cell Distribution Width 15.5 % (11.5-14.5) 15.7 % (11.5-14.5) Platelet Count 280 x10^3/uL (140-400) 265 x10^3/uL (140-400) Neutrophils (%) (Auto) 34 % (31-73) 54 % (31-73) Lymphocytes (%) (Auto) 58 % (24-48) 41 % (24-48) Monocytes (%) (Auto) 6 % (0-9) 4 % (0-9) Eosinophils (%) (Auto) 1 % (0-3) 0 % (0-3) Basophils (%) (Auto) 1 % (0-3) 1 % (0-3) Neutrophils # (Auto) 1.5 x10^3/uL (1.8-7.7) 3.4 x10^3/uL (1.8-7.7) Lymphocytes # (Auto) 2.6 x10^3/uL (1.0-4.8) 2.6 x10^3/uL (1.0-4.8) Monocytes # (Auto) 0.3 x10^3/uL (0.0-1.1) 0.3 x10^3/uL (0.0-1.1) Eosinophils # (Auto) 0.1 x10^3/uL (0.0-0.7) 0.0 x10^3/uL (0.0-0.7) Basophils # (Auto) 0.0 x10^3/uL (0.0-0.2) 0.0 x10^3/uL (0.0-0.2) Prothrombin Time 12.1 SEC (11.7-14.0) Prothromb Time International Ratio 0.9 (0.8-1.1) Sodium Level 144 mmol/L (136-145) 148 mmol/L (136-145) Potassium Level 3.8 mmol/L (3.5-5.1) 3.8 mmol/L (3.5-5.1) Chloride Level 109 mmol/L (98-107) 112 mmol/L (98-107) Carbon Dioxide Level 25 mmol/L (21-32) 26 mmol/L (21-32) Anion Gap 10 (6-14) 10 (6-14) Blood Urea Nitrogen 13 mg/dL (8-26) 18 mg/dL (8-26) Creatinine 1.1 mg/dL (0.7-1.3) 1.1 mg/dL (0.7-1.3) Estimated GFR (Cockcroft-Gault) 70.9 70.9 BUN/Creatinine Ratio 12 (6-20) Glucose Level 121 mg/dL (70-99) 95 mg/dL (70-99) Calcium Level 8.5 mg/dL (8.5-10.1) 8.0 mg/dL (8.5-10.1) Total Bilirubin 0.4 mg/dL (0.2-1.0) Aspartate Amino Transf (AST/SGOT) 23 U/L (15-37) Alanine Aminotransferase (ALT/SGPT) 34 U/L (16-63) Alkaline Phosphatase 62 U/L (46-116) Ammonia 64 mcmol/L (11-34) Total Protein 6.8 g/dL (6.4-8.2) Albumin 3.0 g/dL (3.4-5.0) Albumin/Globulin Ratio 0.8 (1.0-1.7) Lipase 115 U/L (73-393) Ethyl Alcohol Level 463 mg/dL (0-10) Glucose (Fingerstick) 250 mg/dL (70-99) Urine Opiates Screen Neg (NEG) Urine Methadone Screen Neg (NEG) Urine Barbiturates Neg (NEG) Urine Phencyclidine Screen Neg (NEG) Urine Amphetamine/Methamphetamine Neg (NEG) Urine Benzodiazepines Screen Neg (NEG) Urine Cocaine Screen Neg (NEG) Urine Cannabinoids Screen Neg (NEG) Urine Ethyl Alcohol Pos (NEG) Test 05/06/19 03:39 White Blood Count 5.8 x10^3/uL (4.0-11.0) Red Blood Count 3.82 x10^6/uL (4.30-5.70) Hemoglobin 13.2 g/dL (13.0-17.5) Hematocrit 38.6 % (39.0-53.0) Mean Corpuscular Volume 101 fL (79-100) Mean Corpuscular Hemoglobin 35 pg (25-35) Mean Corpuscular Hemoglobin Concent 34 g/dL (31-37) Red Cell Distribution Width 15.1 % (11.5-14.5) Platelet Count 202 x10^3/uL (140-400) Neutrophils (%) (Auto) 66 % (31-73) Lymphocytes (%) (Auto) 27 % (24-48) Monocytes (%) (Auto) 6 % (0-9) Eosinophils (%) (Auto) 1 % (0-3) Basophils (%) (Auto) 1 % (0-3) Neutrophils # (Auto) 3.9 x10^3/uL (1.8-7.7) Lymphocytes # (Auto) 1.6 x10^3/uL (1.0-4.8) Monocytes # (Auto) 0.3 x10^3/uL (0.0-1.1) Eosinophils # (Auto) 0.0 x10^3/uL (0.0-0.7) Basophils # (Auto) 0.0 x10^3/uL (0.0-0.2) Sodium Level 142 mmol/L (136-145) Potassium Level 3.2 mmol/L (3.5-5.1) Chloride Level 107 mmol/L (98-107) Carbon Dioxide Level 26 mmol/L (21-32) Anion Gap 9 (6-14) Blood Urea Nitrogen 9 mg/dL (8-26) Creatinine 1.1 mg/dL (0.7-1.3) Estimated GFR (Cockcroft-Gault) 70.9 BUN/Creatinine Ratio 8 (6-20) Glucose Level 104 mg/dL (70-99) Calcium Level 8.5 mg/dL (8.5-10.1) Total Bilirubin 1.5 mg/dL (0.2-1.0) Aspartate Amino Transf (AST/SGOT) 19 U/L (15-37) Alanine Aminotransferase (ALT/SGPT) 26 U/L (16-63) Alkaline Phosphatase 65 U/L (46-116) Ammonia 28 mcmol/L (11-34) Total Protein 6.3 g/dL (6.4-8.2) Albumin 3.0 g/dL (3.4-5.0) Albumin/Globulin Ratio 0.9 (1.0-1.7) Laboratory Tests Test 05/05/19 12:15 05/06/19 03:39 Urine Opiates Screen Neg (NEG) Urine Methadone Screen Neg (NEG) Urine Barbiturates Neg (NEG) Urine Phencyclidine Screen Neg (NEG) Urine Amphetamine/Methamphetamine Neg (NEG) Urine Benzodiazepines Screen Neg (NEG) Urine Cocaine Screen Neg (NEG) Urine Cannabinoids Screen Neg (NEG) Urine Ethyl Alcohol Pos (NEG) White Blood Count 5.8 x10^3/uL (4.0-11.0) Red Blood Count 3.82 x10^6/uL (4.30-5.70) Hemoglobin 13.2 g/dL (13.0-17.5) Hematocrit 38.6 % (39.0-53.0) Mean Corpuscular Volume 101 fL (79-100) Mean Corpuscular Hemoglobin 35 pg (25-35) Mean Corpuscular Hemoglobin Concent 34 g/dL (31-37) Red Cell Distribution Width 15.1 % (11.5-14.5) Platelet Count 202 x10^3/uL (140-400) Neutrophils (%) (Auto) 66 % (31-73) Lymphocytes (%) (Auto) 27 % (24-48) Monocytes (%) (Auto) 6 % (0-9) Eosinophils (%) (Auto) 1 % (0-3) Basophils (%) (Auto) 1 % (0-3) Neutrophils # (Auto) 3.9 x10^3/uL (1.8-7.7) Lymphocytes # (Auto) 1.6 x10^3/uL (1.0-4.8) Monocytes # (Auto) 0.3 x10^3/uL (0.0-1.1) Eosinophils # (Auto) 0.0 x10^3/uL (0.0-0.7) Basophils # (Auto) 0.0 x10^3/uL (0.0-0.2) Sodium Level 142 mmol/L (136-145) Potassium Level 3.2 mmol/L (3.5-5.1) Chloride Level 107 mmol/L (98-107) Carbon Dioxide Level 26 mmol/L (21-32) Anion Gap 9 (6-14) Blood Urea Nitrogen 9 mg/dL (8-26) Creatinine 1.1 mg/dL (0.7-1.3) Estimated GFR (Cockcroft-Gault) 70.9 BUN/Creatinine Ratio 8 (6-20) Glucose Level 104 mg/dL (70-99) Calcium Level 8.5 mg/dL (8.5-10.1) Total Bilirubin 1.5 mg/dL (0.2-1.0) Aspartate Amino Transf (AST/SGOT) 19 U/L (15-37) Alanine Aminotransferase (ALT/SGPT) 26 U/L (16-63) Alkaline Phosphatase 65 U/L (46-116) Ammonia 28 mcmol/L (11-34) Total Protein 6.3 g/dL (6.4-8.2) Albumin 3.0 g/dL (3.4-5.0) Albumin/Globulin Ratio 0.9 (1.0-1.7) Medications Current Medications Sodium Chloride 1,000 ml @ 1,000 mls/hr Q1H IV Last administered on 05/04/19at 13:55; Start 05/04/19 at 13:35; Stop 05/04/19 at 14:34; Status DC Lorazepam (Ativan Inj) 1 mg 1X ONCE IV Last administered on 05/04/19at 15:49; Start 05/04/19 at 15:30; Stop 05/04/19 at 15:31; Status DC Ondansetron HCl (Zofran) 4 mg PRN Q8HRS PRN IV NAUSEA/VOMITING Last administered on 05/05/19at 10:45; Start 05/04/19 at 16:15; Stop 05/05/19 at 12:19; Status DC Sodium Chloride 1,000 ml @ 125 mls/hr Q8H IV Last administered on 05/05/19at 08:44; Start 05/04/19 at 16:15; Stop 05/05/19 at 16:14; Status DC Lactobacillus Rhamnosus (Culturelle) 1 cap BID PO Last administered on 05/05/19at 20:46; Start 05/04/19 at 21:00 Multivitamins 10 ml/Thiamine HCl 100 mg/Folic Acid 1 mg/Sodium Chloride 1,011.2 ml @ 100 mls/ hr 1X ONCE IV Last administered on 05/05/19at 13:51; Start 05/05/19 at 13:00; Stop 05/05/19 at 23:06; Status DC Multivitamins (Thera M Plus) 1 tab DAILY PO ; Start 05/06/19 at 09:00 Folic Acid (Folic Acid) 1 mg DAILY PO ; Start 05/06/19 at 09:00 Thiamine HCl 100 mg/Dextrose 51 ml @ 100 mls/hr DAILY IV ; Start 05/06/19 at 09:00; Stop 05/10/19 at 09:31; Status UNV Lorazepam (Ativan) 4 mg PRN Q1HR PRN PO For CIWA 8-14; Start 05/05/19 at 12:15 Lorazepam (Ativan) 8 mg PRN Q1HR PRN PO For CIWA 15 or greater; Start 05/05/19 at 12:15 Lorazepam (Ativan Inj) 2 mg PRN Q1HR PRN IV For CIWA 8-14; Start 05/05/19 at 12:15 Lorazepam (Ativan Inj) 4 mg PRN Q1HR PRN IV For CIWA 15 or greater; Start 05/05/19 at 12:15 Haloperidol Lactate (Haldol Inj) 5 mg PRN Q4HRS PRN IVP Hallucinatns,Confusn,Delirium; Start 05/05/19 at 12:15 Diphenhydramine HCl (Benadryl) 25 mg PRN Q15MIN PRN IVP EPS symptoms 2'Haldol admin; Start 05/05/19 at 12:15 Clonidine HCl (Catapres) 0.1 mg PRN Q1HR PRN PO SBP > 180 or DBP > 100, MRX3; Start 05/05/19 at 12:15 Lorazepam (Ativan Inj) 2 mg PRN Q15MIN PRN IV SEE COMMENTS; Start 05/05/19 at 12:15; Stop 05/05/19 at 12:12; Status DC Lorazepam (Ativan Inj) 4 mg PRN Q15MIN PRN IV SEE COMMENTS; Start 05/05/19 at 12:15; Stop 05/05/19 at 12:12; Status DC Amlodipine Besylate (Norvasc) 5 mg DAILY PO Last administered on 05/05/19at 13:53; Start 05/05/19 at 13:00 Citalopram Hydrobromide (CeleXA) 20 mg DAILY PO Last administered on 05/05/19at 13:53; Start 05/05/19 at 13:00 Metoprolol Succinate (Toprol Xl) 50 mg DAILY PO Last administered on 05/05/19at 13:53; Start 05/05/19 at 13:00 Famotidine (Pepcid) 20 mg BID PO Last administered on 05/05/19at 20:46; Start 05/05/19 at 13:00 Lactulose (Lactulose) 20 gm BID PO Last administered on 05/05/19at 20:46; Start 05/05/19 at 13:00 Thiamine Mononitrate (Vitamin B-1) 100 mg DAILY PO ; Start 05/06/19 at 09:00 Sodium Chloride (Normal Saline Flush) 3 ml QSHIFT PRN IV AFTER MEDS AND BLOOD DRAWS; Start 05/05/19 at 12:15 Ondansetron HCl (Zofran) 4 mg PRN Q4HRS PRN IV NAUSEA/VOMITING; Start 05/05/19 at 12:15 Acetaminophen (Tylenol) 650 mg PRN Q4HRS PRN PO TEMP OVER 100.4F OR MILD PAIN; Start 05/05/19 at 12:15 Al Hydroxide/Mg Hydroxide (Mylanta Plus Xs) 30 ml PRN DAILY PRN PO HEARTBURN / GAS; Start 05/05/19 at 12:15 Clonidine HCl (Catapres) 0.1 mg PRN Q6HRS PRN PO SBP>160 OR DBP>90; Start 05/05/19 at 12:15 Sodium Monofluorophosphate (Fleet Adult) 133 ml PRN DAILY PRN IN CONSTIPATION; Start 05/05/19 at 12:15 Docusate Sodium (Colace) 100 mg PRN BID PRN PO CONSTIPATION; Start 05/05/19 at 12:15 Albuterol/ Ipratropium (Duoneb) 3 ml Q4HRS NEB Last administered on 05/06/19at 07:07; Start 05/05/19 at 13:00 Guaifenesin (Robitussin) 200 mg PRN Q4HRS PRN PO COUGH; Start 05/05/19 at 12:15 Lorazepam (Ativan) 0.5 mg PRN Q4HRS PRN PO ANXIETY / AGITATION Last administered on 05/05/19at 15:03; Start 05/05/19 at 12:15 Lorazepam (Ativan Inj) 2 mg PRN Q4HRS PRN IV ANXIETY / AGITATION; Start 05/05/19 at 12:15 Enoxaparin Sodium (Lovenox 40mg Syringe) 40 mg DAILY SQ Last administered on 05/05/19at 13:52; Start 05/05/19 at 12:30 Lactulose (Lactulose) 30 gm 1X ONCE PO ; Start 05/05/19 at 16:00; Stop 05/05/19 at 16:01; Status DC Active Scripts Active Reported Celexa (Citalopram Hydrobromide) 20 Mg Tablet 1 Tab PO DAILY Metoprolol Tartrate 50 Mg Tablet 1 Tab PO DAILY Amlodipine Besylate 5 Mg Tablet 5 Mg PO DAILY [citalopram] DAILY [amlodip] DAILY [metoprolol] BID Vitals/I & O Vital Sign - Last 24 Hours 05/05/19 05/05/19 05/05/19 05/05/19 11:00 13:53 13:53 15:00 Temp 98.0 98.5 98.0 98.5 Pulse 103 103 103 99 Resp 14 14 B/P (MAP) 157/83 (107) 157/83 157/83 155/78 (103) Pulse Ox 96 95 O2 Delivery Nasal Cannula Nasal Cannula O2 Flow Rate 3.0 3.0 05/05/19 05/05/19 05/05/19 05/05/19 16:00 19:38 19:54 20:00 Temp 98.6 98.6 Pulse 93 Resp 18 B/P (MAP) 145/71 (95) Pulse Ox 94 94 96 O2 Delivery Room Air Nasal Cannula Room Air Room Air O2 Flow Rate 3.0 3.0 05/05/19 05/06/19 05/06/19/30/19 23:15 03:40 07:07 07:42 Temp 98.3 97.5 97.6 98.3 97.5 97.6 Pulse 97 77 85 Resp 16 18 20 B/P (MAP) 153/80 (104) 153/74 (100) 158/83 (108) Pulse Ox 96 96 98 97 O2 Delivery Nasal Cannula Nasal Cannula Room Air Nasal Cannula O2 Flow Rate 3.0 3.0 3.0 Intake and Output 05/05/19 05/05/19 05/06/19 15:00 23:00 07:00 Intake Total 240 ml 500 ml 200 ml Output Total 450 ml Balance -210 ml 500 ml 200 ml MARLENE CUETO MD May 06, 2019 08:33
[2019-05-06] MEDS ORDERED: THIAMINE INJ 100 MG in IV DEXTROSE 5% 50 ML IV SCH (09:00)
[2019-05-06] MEDS ORDERED: POTASSIUM CHLORIDE 20 MEQ TABLET.ER. PO ONE (09:30)
--- NOTE | 2019-05-06 09:49 | PDOC ---
Subjective: Subjective: Lots of stools after lactulose. No abd pain, tolerating PO, feeling okay. Objective: Vital Signs: Vital Signs Date Time Temp Pulse Resp B/P (MAP) Pulse Ox O2 Delivery O2 Flow Rate FiO2 05/06/19 07:42 97.6 85 20 158/83 (108) 97 Nasal Cannula 3.0 97.6 Labs: Laboratory Tests Test 05/05/19 12:15 05/06/19 03:39 Urine Opiates Screen Neg Urine Methadone Screen Neg Urine Barbiturates Neg Urine Phencyclidine Screen Neg Urine Amphetamine/Methamphetamine Neg Urine Benzodiazepines Screen Neg Urine Cocaine Screen Neg Urine Cannabinoids Screen Neg Urine Ethyl Alcohol Pos White Blood Count 5.8 x10^3/uL Red Blood Count 3.82 x10^6/uL Hemoglobin 13.2 g/dL Hematocrit 38.6 % Mean Corpuscular Volume 101 fL Mean Corpuscular Hemoglobin 35 pg Mean Corpuscular Hemoglobin Concent 34 g/dL Red Cell Distribution Width 15.1 % Platelet Count 202 x10^3/uL Neutrophils (%) (Auto) 66 % Lymphocytes (%) (Auto) 27 % Monocytes (%) (Auto) 6 % Eosinophils (%) (Auto) 1 % Basophils (%) (Auto) 1 % Neutrophils # (Auto) 3.9 x10^3/uL Lymphocytes # (Auto) 1.6 x10^3/uL Monocytes # (Auto) 0.3 x10^3/uL Eosinophils # (Auto) 0.0 x10^3/uL Basophils # (Auto) 0.0 x10^3/uL Sodium Level 142 mmol/L Potassium Level 3.2 mmol/L Chloride Level 107 mmol/L Carbon Dioxide Level 26 mmol/L Anion Gap 9 Blood Urea Nitrogen 9 mg/dL Creatinine 1.1 mg/dL Estimated GFR (Cockcroft-Gault) 70.9 BUN/Creatinine Ratio 8 Glucose Level 104 mg/dL Calcium Level 8.5 mg/dL Total Bilirubin 1.5 mg/dL Aspartate Amino Transf (AST/SGOT) 19 U/L Alanine Aminotransferase (ALT/SGPT) 26 U/L Alkaline Phosphatase 65 U/L Ammonia 28 mcmol/L Total Protein 6.3 g/dL Albumin 3.0 g/dL Albumin/Globulin Ratio 0.9 Imaging: Abd US Impression: 1. There is coarsening of hepatic echotexture, most likely due to steatosis. There is hepatomegaly. PE: GEN: NAD, smiling LUNGS: NC 3L HEART: RRR ABD: NABS, S/ND/NT NEURO/PSYCH: A & O 3 A/P: Syncope, alcohol intoxication, hyperammonemia (resolved) Hepatic steatosis, mildly elevated bilirubin -- Improved/stable from GI standpoint. MARYAN ALCARAZ May 06, 2019 09:49
[2019-05-06] MEDS: CITALOPRAM 20 MG TABLET. PO SCH (09:53)
[2019-05-06] MEDS: LACTOBACILLUS RHAMNOSUS GG 1 CAPSULE. PO SCH ×2 (09:53→21:00)
[2019-05-06] MEDS: THIAMINE 100 MG TABLET. PO SCH (09:53)
[2019-05-06] MEDS: FAMOTIDINE 20 MG TABLET. PO SCH ×2 (09:53→21:00)
[2019-05-06] MEDS: amLODIPine BESYLATE 5 MG TABLET PO SCH (09:54)
[2019-05-06] MEDS: MULTIVITAMIN with MINERAL TABLET. PO SCH (09:54)
[2019-05-06] MEDS: FOLIC ACID 1 MG TABLET. PO SCH (09:54)
[2019-05-06] MEDS: METOPROLOL SUCC 24HR ER 50 MG TAB.ER.24H. PO SCH (09:55)
[2019-05-06] MEDS: ENOXAPARIN 40 MG/0.4 ML SYRINGE. SQ SCH (09:56)
[2019-05-06] MEDS: LACTULOSE 20 GM/30 ML SOLUTION. PO SCH ×2 (09:57→21:00)
[2019-05-06 11:30] VITALS: BP 156/98
[2019-05-06 15:48] VITALS: BP 138/74
--- NOTE | 2019-05-06 16:16 | PDOC2 ---
NEUROLOGY CONSULT Date of Admission Date of Admission DATE: 05/06/19 TIME: 16:02 Reason for Consult Reason for Consult: IMPRESSION: Toxical encephalopathy. Alcohol intoxication, ETOH level 463. Metabolic encephalopthy. DM. Alcohol abuse. Obesity. RECOMMENDATIONS/PLAN: Detoxication treatment. Vit B1 supplement. EEG. Treat medical diseases. Patient education for alcohol abstinence. HISTORY OF THE PRESENT ILLNESS: This is a pleasant 49-year-old male who brought to the ER of [facility] due to alcohol intoxication. Per his statement, he was walking with his dog then LOC. He was found dome LOC on the ground by bystander. He has gait instability after gained consciousness. He has lonstanding history of alcohol use/abuse for more than 30 years several times a week drinking several beers or alcohol each time. When he got here, he has got an alcohol level of 463. No seizure reported. PAST MEDICAL HISTORY: Alcoholism, but apparently he does not drink regularly, but his dad states he has binges. FAMILY HISTORY: Hypertension. SOCIAL HISTORY: He drinks vodka, but intermittently. 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 He lives at home with his parents reportedly. ALLERGY: NKDA MEDICATIONS: Refer to MAR REVIEW OF SYSTEMS: Constitutional: No malnutrition, weight loss, cachexia. Head: No traumatic brain or head injury. Skin: No edema, or rash. Ear: No infection. Eyes: No vision loss or color blindness. Nose: No bleeding or purulent discharges. Hearing: No hearing decrease. Neck: No injury. Cardiac: No DC, arrhythmia,claudication. Pulmonary: No COPD. GI: No GI ulcer, GI bleeding. Urinary/genital: No dysuria, incontinence, urinary retention. Endocrinologic: Diabetes Mellitus. Skeletomuscular: No muscular atrophy, deformity. Neurological: see HP. Psychiatric: Denies drug use/abuse. Otherwise, not [id number] review of systems. PHYSICAL EXAMINATION: General appearance is in subacute distress. HEENT: Normocephalic and nontraumatic. Eyes, nose, ears, and throat are unremarkable. Neck is supple. No lymphadenopathy. No crepitus. Cardiovascular: S1, S2, regular rate and rhythm. Pulmonary: Clear to auscultation bilaterally. Abdomen: Bowel sounds are positive. Extremities: No rash, lesions, or edema. No restriction of range of motion NEUROLOGICAL EXAMINATION: Awake. Oriented to time, place and person but reactions were slow. PERRL. EOMI. CN: no focal findings. Muscle tone: within normal. Muscle strength: 5 DTR: 2 Plantar reflex: Flexor/Neutral response bilaterally Gait: not examined in bed. Sensory exam: no abnormal findings. F-T-N test not accurate. Current Medications Current Medications Current Medications Sodium Chloride 1,000 ml @ 1,000 mls/hr Q1H IV Last administered on 05/04/19at 13:55; Start 05/04/19 at 13:35; Stop 05/04/19 at 14:34; Status DC Lorazepam (Ativan Inj) 1 mg 1X ONCE IV Last administered on 05/04/19at 15:49; Start 05/04/19 at 15:30; Stop 05/04/19 at 15:31; Status DC Ondansetron HCl (Zofran) 4 mg PRN Q8HRS PRN IV NAUSEA/VOMITING Last administered on 05/05/19at 10:45; Start 05/04/19 at 16:15; Stop 05/05/19 at 12:19; Status DC Sodium Chloride 1,000 ml @ 125 mls/hr Q8H IV Last administered on 05/05/19at 08:44; Start 05/04/19 at 16:15; Stop 05/05/19 at 16:14; Status DC Lactobacillus Rhamnosus (Culturelle) 1 cap BID PO Last administered on 05/06/19at 09:53; Start 05/04/19 at 21:00 Multivitamins 10 ml/Thiamine HCl 100 mg/Folic Acid 1 mg/Sodium Chloride 1,011.2 ml @ 100 mls/ hr 1X ONCE IV Last administered on 05/05/19at 13:51; Start 05/05/19 at 13:00; Stop 05/05/19 at 23:06; Status DC Multivitamins (Thera M Plus) 1 tab DAILY PO Last administered on 05/06/19at 09:54; Start 05/06/19 at 09:00 Folic Acid (Folic Acid) 1 mg DAILY PO Last administered on 05/06/19at 09:54; Start 05/06/19 at 09:00 Thiamine HCl 100 mg/Dextrose 51 ml @ 100 mls/hr DAILY IV ; Start 05/06/19 at 09:00; Stop 05/10/19 at 09:31; Status UNV Lorazepam (Ativan) 4 mg PRN Q1HR PRN PO For CIWA 8-14; Start 05/05/19 at 12:15 Lorazepam (Ativan) 8 mg PRN Q1HR PRN PO For CIWA 15 or greater; Start 05/05/19 at 12:15 Lorazepam (Ativan Inj) 2 mg PRN Q1HR PRN IV For CIWA 8-14; Start 05/05/19 at 12:15 Lorazepam (Ativan Inj) 4 mg PRN Q1HR PRN IV For CIWA 15 or greater; Start 05/05/19 at 12:15 Haloperidol Lactate (Haldol Inj) 5 mg PRN Q4HRS PRN IVP Hallucinatns,Confusn,Delirium; Start 05/05/19 at 12:15 Diphenhydramine HCl (Benadryl) 25 mg PRN Q15MIN PRN IVP EPS symptoms 2'Haldol admin; Start 05/05/19 at 12:15 Clonidine HCl (Catapres) 0.1 mg PRN Q1HR PRN PO SBP > 180 or DBP > 100, MRX3; Start 05/05/19 at 12:15 Lorazepam (Ativan Inj) 2 mg PRN Q15MIN PRN IV SEE COMMENTS; Start 05/05/19 at 12:15; Stop 05/05/19 at 12:12; Status DC Lorazepam (Ativan Inj) 4 mg PRN Q15MIN PRN IV SEE COMMENTS; Start 05/05/19 at 12:15; Stop 05/05/19 at 12:12; Status DC Amlodipine Besylate (Norvasc) 5 mg DAILY PO Last administered on 05/06/19at 09:54; Start 05/05/19 at 13:00 Citalopram Hydrobromide (CeleXA) 20 mg DAILY PO Last administered on 05/06/19at 09:53; Start 05/05/19 at 13:00 Metoprolol Succinate (Toprol Xl) 50 mg DAILY PO Last administered on 05/06/19at 09:55; Start 05/05/19 at 13:00 Famotidine (Pepcid) 20 mg BID PO Last administered on 05/06/19at 09:53; Start 05/05/19 at 13:00 Lactulose (Lactulose) 20 gm BID PO Last administered on 05/06/19at 09:57; Start 05/05/19 at 13:00 Thiamine Mononitrate (Vitamin B-1) 100 mg DAILY PO Last administered on 05/06/19at 09:53; Start 05/06/19 at 09:00 Sodium Chloride (Normal Saline Flush) 3 ml QSHIFT PRN IV AFTER MEDS AND BLOOD DRAWS; Start 05/05/19 at 12:15 Ondansetron HCl (Zofran) 4 mg PRN Q4HRS PRN IV NAUSEA/VOMITING; Start 05/05/19 at 12:15 Acetaminophen (Tylenol) 650 mg PRN Q4HRS PRN PO TEMP OVER 100.4F OR MILD PAIN; Start 05/05/19 at 12:15 Al Hydroxide/Mg Hydroxide (Mylanta Plus Xs) 30 ml PRN DAILY PRN PO HEARTBURN / GAS; Start 05/05/19 at 12:15 Clonidine HCl (Catapres) 0.1 mg PRN Q6HRS PRN PO SBP>160 OR DBP>90; Start 05/05/19 at 12:15 Sodium Monofluorophosphate (Fleet Adult) 133 ml PRN DAILY PRN MA CONSTIPATION; Start 05/05/19 at 12:15 Docusate Sodium (Colace) 100 mg PRN BID PRN PO CONSTIPATION; Start 05/05/19 at 12:15 Albuterol/ Ipratropium (Duoneb) 3 ml Q4HRS NEB Last administered on 05/06/19at 15:48; Start 05/05/19 at 13:00 Guaifenesin (Robitussin) 200 mg PRN Q4HRS PRN PO COUGH; Start 05/05/19 at 12:15 Lorazepam (Ativan) 0.5 mg PRN Q4HRS PRN PO ANXIETY / AGITATION Last administered on 05/05/19at 15:03; Start 05/05/19 at 12:15 Lorazepam (Ativan Inj) 2 mg PRN Q4HRS PRN IV ANXIETY / AGITATION; Start 05/05/19 at 12:15 Enoxaparin Sodium (Lovenox 40mg Syringe) 40 mg DAILY SQ Last administered on 05/06/19at 09:56; Start 05/05/19 at 12:30 Lactulose (Lactulose) 30 gm 1X ONCE PO ; Start 05/05/19 at 16:00; Stop 05/05/19 at 16:01; Status DC Potassium Chloride (Klor-Con) 40 meq 1X ONCE PO Last administered on 05/06/19at 09:58; Start 05/06/19 at 09:30; Stop 05/06/19 at 09:31; Status DC Potassium Chloride (Klor-Con) 20 meq DAILYWBKFT PO ; Start 05/07/19 at 08:00 Active Scripts Active Reported Celexa (Citalopram Hydrobromide) 20 Mg Tablet 1 Tab PO DAILY Metoprolol Tartrate 50 Mg Tablet 1 Tab PO DAILY Amlodipine Besylate 5 Mg Tablet 5 Mg PO DAILY [citalopram] DAILY [amlodip] DAILY [metoprolol] BID Allergies Allergies: Allergies Coded Allergies Type Severity Reaction Last Updated Verified No Known Drug Allergies 05/04/19 No ROS Review of System The patient denies any associated fevers, chills, headache, ear pain, rhinorrhea, sore throat, stiff neck, productive cough, chest pain, shortness of breath, back or flank pain, abdominal pain, nausea, vomiting, diarrhea, constipation, dysuria, rash, numbness, weakness, tingling, incontinence, difficulty ambulating, or diaphoresis. Physical Exam Physical Exam General: Well developed, well nourished, no acute distress, well appearing HEENT: Pupils equally round and reactive to light, EOMI, no discharge, normal conjunctiva Neck: Supple, no nuchal rigidity, no JVD, trachea midline, no tenderness Cardiac: RRR, no murmurs, no gallops, no rubs Chest/Lungs: CTAB, no wheeze, no rhonchi, no crackles Abdomen: soft, non-distended, no guarding, no peritoneal signs, non-tender Back: No tenderness Extremities: no edema, pulses intact, non-tender,capillary refill <3 sec bilateral upper and lower extremities, Neuro: Alert and oriented x 4, no focal deficits, normal speech Vitals Vitals: Vital Signs Date Time Temp Pulse Resp B/P (MAP) Pulse Ox O2 Delivery O2 Flow Rate FiO2 05/06/19 15:49 98 Room Air 05/06/19 15:48 98.6 88 18 138/74 (95) 3.0 98.6 Labs Labs Laboratory Tests Test 05/04/19 18:34 05/05/19 05:18 05/05/19 12:15 05/06/19 03:39 Glucose (Fingerstick) 250 mg/dL (70-99) White Blood Count 6.4 x10^3/uL (4.0-11.0) 5.8 x10^3/uL (4.0-11.0) Red Blood Count 3.83 x10^6/uL (4.30-5.70) 3.82 x10^6/uL (4.30-5.70) Hemoglobin 13.3 g/dL (13.0-17.5) 13.2 g/dL (13.0-17.5) Hematocrit 39.1 % (39.0-53.0) 38.6 % (39.0-53.0) Mean Corpuscular Volume 102 fL (79-100) 101 fL (79-100) Mean Corpuscular Hemoglobin 35 pg (25-35) 35 pg (25-35) Mean Corpuscular Hemoglobin Concent 34 g/dL (31-37) 34 g/dL (31-37) Red Cell Distribution Width 15.7 % (11.5-14.5) 15.1 % (11.5-14.5) Platelet Count 265 x10^3/uL (140-400) 202 x10^3/uL (140-400) Neutrophils (%) (Auto) 54 % (31-73) 66 % (31-73) Lymphocytes (%) (Auto) 41 % (24-48) 27 % (24-48) Monocytes (%) (Auto) 4 % (0-9) 6 % (0-9) Eosinophils (%) (Auto) 0 % (0-3) 1 % (0-3) Basophils (%) (Auto) 1 % (0-3) 1 % (0-3) Neutrophils # (Auto) 3.4 x10^3/uL (1.8-7.7) 3.9 x10^3/uL (1.8-7.7) Lymphocytes # (Auto) 2.6 x10^3/uL (1.0-4.8) 1.6 x10^3/uL (1.0-4.8) Monocytes # (Auto) 0.3 x10^3/uL (0.0-1.1) 0.3 x10^3/uL (0.0-1.1) Eosinophils # (Auto) 0.0 x10^3/uL (0.0-0.7) 0.0 x10^3/uL (0.0-0.7) Basophils # (Auto) 0.0 x10^3/uL (0.0-0.2) 0.0 x10^3/uL (0.0-0.2) Sodium Level 148 mmol/L (136-145) 142 mmol/L (136-145) Potassium Level 3.8 mmol/L (3.5-5.1) 3.2 mmol/L (3.5-5.1) Chloride Level 112 mmol/L (98-107) 107 mmol/L (98-107) Carbon Dioxide Level 26 mmol/L (21-32) 26 mmol/L (21-32) Anion Gap 10 (6-14) 9 (6-14) Blood Urea Nitrogen 18 mg/dL (8-26) 9 mg/dL (8-26) Creatinine 1.1 mg/dL (0.7-1.3) 1.1 mg/dL (0.7-1.3) Estimated GFR (Cockcroft-Gault) 70.9 70.9 Glucose Level 95 mg/dL (70-99) 104 mg/dL (70-99) Calcium Level 8.0 mg/dL (8.5-10.1) 8.5 mg/dL (8.5-10.1) Urine Opiates Screen Neg (NEG) Urine Methadone Screen Neg (NEG) Urine Barbiturates Neg (NEG) Urine Phencyclidine Screen Neg (NEG) Urine Amphetamine/Methamphetamine Neg (NEG) Urine Benzodiazepines Screen Neg (NEG) Urine Cocaine Screen Neg (NEG) Urine Cannabinoids Screen Neg (NEG) Urine Ethyl Alcohol Pos (NEG) BUN/Creatinine Ratio 8 (6-20) Total Bilirubin 1.5 mg/dL (0.2-1.0) Aspartate Amino Transf (AST/SGOT) 19 U/L (15-37) Alanine Aminotransferase (ALT/SGPT) 26 U/L (16-63) Alkaline Phosphatase 65 U/L (46-116) Ammonia 28 mcmol/L (11-34) Total Protein 6.3 g/dL (6.4-8.2) Albumin 3.0 g/dL (3.4-5.0) Albumin/Globulin Ratio 0.9 (1.0-1.7) Laboratory Tests Test 05/06/19 03:39 White Blood Count 5.8 x10^3/uL (4.0-11.0) Red Blood Count 3.82 x10^6/uL (4.30-5.70) Hemoglobin 13.2 g/dL (13.0-17.5) Hematocrit 38.6 % (39.0-53.0) Mean Corpuscular Volume 101 fL (79-100) Mean Corpuscular Hemoglobin 35 pg (25-35) Mean Corpuscular Hemoglobin Concent 34 g/dL (31-37) Red Cell Distribution Width 15.1 % (11.5-14.5) Platelet Count 202 x10^3/uL (140-400) Neutrophils (%) (Auto) 66 % (31-73) Lymphocytes (%) (Auto) 27 % (24-48) Monocytes (%) (Auto) 6 % (0-9) Eosinophils (%) (Auto) 1 % (0-3) Basophils (%) (Auto) 1 % (0-3) Neutrophils # (Auto) 3.9 x10^3/uL (1.8-7.7) Lymphocytes # (Auto) 1.6 x10^3/uL (1.0-4.8) Monocytes # (Auto) 0.3 x10^3/uL (0.0-1.1) Eosinophils # (Auto) 0.0 x10^3/uL (0.0-0.7) Basophils # (Auto) 0.0 x10^3/uL (0.0-0.2) Sodium Level 142 mmol/L (136-145) Potassium Level 3.2 mmol/L (3.5-5.1) Chloride Level 107 mmol/L (98-107) Carbon Dioxide Level 26 mmol/L (21-32) Anion Gap 9 (6-14) Blood Urea Nitrogen 9 mg/dL (8-26) Creatinine 1.1 mg/dL (0.7-1.3) Estimated GFR (Cockcroft-Gault) 70.9 BUN/Creatinine Ratio 8 (6-20) Glucose Level 104 mg/dL (70-99) Calcium Level 8.5 mg/dL (8.5-10.1) Total Bilirubin 1.5 mg/dL (0.2-1.0) Aspartate Amino Transf (AST/SGOT) 19 U/L (15-37) Alanine Aminotransferase (ALT/SGPT) 26 U/L (16-63) Alkaline Phosphatase 65 U/L (46-116) Ammonia 28 mcmol/L (11-34) Total Protein 6.3 g/dL (6.4-8.2) Albumin 3.0 g/dL (3.4-5.0) Albumin/Globulin Ratio 0.9 (1.0-1.7) RAFA MARTINES MD May 06, 2019 16:16
[2019-05-06 19:25] VITALS: BP 156/88
[2019-05-06] MEDS ORDERED: DEXTROSE 50% 25 GM / 50ML DISP.SYRIN. IV PRN (21:00)
[2019-05-06] MEDS ORDERED: IV DEXTROSE 5% 250 ML BAG. IV PRN (21:00)
[2019-05-06 23:38] VITALS: BP 161/92
[2019-05-07] MEDS: IPRATRPIUM/ALBUTEROL 0.5/2.5MG 3 ML NEBU. NEB SCH ×3 (03:04→11:13)
[2019-05-07 03:11] VITALS: BP 160/86
[2019-05-07 04:46] LABS: BASO % 1 % (0-3); EOS % 1 % (0-3); HEMATOCRIT 38.4 % (39.0-53.0); HEMOGLOBIN 13.1 g/dL (13.0-17.5); LYMPH # 1.9 x10^3/uL (1.0-4.8); LYMPH % 34 % (24-48); MEAN CORPUSCULAR HEMOGLOBIN 35 pg (25-35); MEAN CORPUSCULAR HGB CONC 34 g/dL (31-37); MEAN CORPUSCULAR VOLUME 102 fL (79-100); MONO # 0.4 x10^3/uL (0.0-1.1); MONO % 6 % (0-9); NEUT # 3.2 x10^3/uL (1.8-7.7); NEUT % 58 % (31-73); PLATELET COUNT 183 x10^3/uL (140-400); RED BLOOD COUNT 3.76 x10^6/uL (4.30-5.70); RED CELL DISTRIBUTION WIDTH 15.4 % (11.5-14.5); WHITE BLOOD COUNT 5.5 x10^3/uL (4.0-11.0)
[2019-05-07 05:06] LABS: ALBUMIN/GLOBULIN RATIO 0.9 (1.0-1.7); CALCIUM 8.8 mg/dL (8.5-10.1); CREATININE 1.1 mg/dL (0.7-1.3); GFR 70.9; POTASSIUM 3.3 mmol/L (3.5-5.1); TOTAL BILIRUBIN 1.2 mg/dL (0.2-1.0); TOTAL PROTEIN 6.4 g/dL (6.4-8.2)
--- NOTE | 2019-05-07 07:23 | PDOC ---
PROGRESS NOTES History of Present Illness History of Present Illness discharge dx severe alcohol abuse, heavy binging on weekends Alcohol intoxication elevated ammonia level. resolved hepatic encephalopathy. RESOLVED acute hypoxic resp failure DEPRESSION HYPERTENSION falls HYPOKALEMIA 05/06 Some tremor , anxiety overnight, no hallucinations 05/07 ok will d/c home needs DAILY AA MEETINGS admit p.r.n. benzos. DVT prophylaxis. Home meds, IV fluids, full code, q. 4 hours neuro checks. BiPAP support ALCOHOL WITHDRAWAL PROTOCOL ABD SONO LACTULOSE 20CC BID GI CONSULT neurology consult PT/OT REPLACE K 05/05long discussion in room with parents and sister, need for treatment, AA// PAT TEAM CONSULT 25 min pt exam, chart review D/C PLANNING TIME , > 50% of time spent with exam, chart review, pt care coordination Vitals Vitals Vital Signs Date Time Temp Pulse Resp B/P (MAP) Pulse Ox O2 Delivery O2 Flow Rate FiO2 05/07/19 03:11 97.9 80 16 160/86 (110) 98 Room Air 97.9 05/06/19 19:56 3.0 Physical Exam Physical Exam GENERAL: No apparent distress. Alert and oriented. GOOD AFFECT HEENT: Head is normocephalic, atraumatic, pupils were equally round and reactive to light and accommodation. NECK: Supple, no JVD, no thyromegaly was noted. LUNGS: Clear to auscultation in all lung vera without rhonchi or wheezing. HEART: RRR, S1, S2 present. Peripheral pulses intact, no obvious murmurs were noted. ABDOMEN: Soft, nontender. Positive bowel sounds no organomegaly, normal bowel sounds. EXTREMITIES: Without any cyanosis, clubbing, or edema. Pedal pulses intact, Homans sign is negative. NEUROLOGIC: He is snoring. PSYCHIATRIC: Normal affect, normal mood. Stable. SKIN: No ulcerations or rashes, good skin turgor, no jaundice. VASCULAR: Good capillary refill, neurovascular bundle appears to be intact. General: Alert, Oriented X3, Cooperative, No acute distress Heart: Regular rate, Normal S1, Normal S2, No murmurs Lungs: Clear Abdomen: Normal bowel sounds, Soft, No tenderness Extremities: No clubbing, No cyanosis, No edema, No tenderness/swelling Skin: No breakdown, No significant lesion Labs LABS Laboratory Tests Test 05/06/19 22:10 05/07/19 03:40 Glucose 2 Hour Postprandial 120 mg/dL (70-140) White Blood Count 5.5 x10^3/uL (4.0-11.0) Red Blood Count 3.76 x10^6/uL (4.30-5.70) Hemoglobin 13.1 g/dL (13.0-17.5) Hematocrit 38.4 % (39.0-53.0) Mean Corpuscular Volume 102 fL (79-100) Mean Corpuscular Hemoglobin 35 pg (25-35) Mean Corpuscular Hemoglobin Concent 34 g/dL (31-37) Red Cell Distribution Width 15.4 % (11.5-14.5) Platelet Count 183 x10^3/uL (140-400) Neutrophils (%) (Auto) 58 % (31-73) Lymphocytes (%) (Auto) 34 % (24-48) Monocytes (%) (Auto) 6 % (0-9) Eosinophils (%) (Auto) 1 % (0-3) Basophils (%) (Auto) 1 % (0-3) Neutrophils # (Auto) 3.2 x10^3/uL (1.8-7.7) Lymphocytes # (Auto) 1.9 x10^3/uL (1.0-4.8) Monocytes # (Auto) 0.4 x10^3/uL (0.0-1.1) Eosinophils # (Auto) 0.0 x10^3/uL (0.0-0.7) Basophils # (Auto) 0.0 x10^3/uL (0.0-0.2) Sodium Level 145 mmol/L (136-145) Potassium Level 3.3 mmol/L (3.5-5.1) Chloride Level 107 mmol/L (98-107) Carbon Dioxide Level 28 mmol/L (21-32) Anion Gap 10 (6-14) Blood Urea Nitrogen 6 mg/dL (8-26) Creatinine 1.1 mg/dL (0.7-1.3) Estimated GFR (Cockcroft-Gault) 70.9 BUN/Creatinine Ratio 5 (6-20) Glucose Level 111 mg/dL (70-99) Calcium Level 8.8 mg/dL (8.5-10.1) Total Bilirubin 1.2 mg/dL (0.2-1.0) Aspartate Amino Transf (AST/SGOT) 19 U/L (15-37) Alanine Aminotransferase (ALT/SGPT) 24 U/L (16-63) Alkaline Phosphatase 63 U/L (46-116) Ammonia < 10 mcmol/L (11-34) Total Protein 6.4 g/dL (6.4-8.2) Albumin 3.0 g/dL (3.4-5.0) Albumin/Globulin Ratio 0.9 (1.0-1.7) Assessment and Plan Assessmemt and Plan Problems Medical Problems: (1) Alcohol intoxication Status: Acute (2) Hepatic encephalopathy Status: Acute Comment Review of Relevant I have reviewed the following items jj (where applicable) has been applied. Labs Laboratory Tests Test 05/05/19 12:15 05/06/19 03:39 05/06/19 22:10 05/07/19 03:40 Urine Opiates Screen Neg (NEG) Urine Methadone Screen Neg (NEG) Urine Barbiturates Neg (NEG) Urine Phencyclidine Screen Neg (NEG) Urine Amphetamine/Methamphetamine Neg (NEG) Urine Benzodiazepines Screen Neg (NEG) Urine Cocaine Screen Neg (NEG) Urine Cannabinoids Screen Neg (NEG) Urine Ethyl Alcohol Pos (NEG) White Blood Count 5.8 x10^3/uL (4.0-11.0) 5.5 x10^3/uL (4.0-11.0) Red Blood Count 3.82 x10^6/uL (4.30-5.70) 3.76 x10^6/uL (4.30-5.70) Hemoglobin 13.2 g/dL (13.0-17.5) 13.1 g/dL (13.0-17.5) Hematocrit 38.6 % (39.0-53.0) 38.4 % (39.0-53.0) Mean Corpuscular Volume 101 fL (79-100) 102 fL (79-100) Mean Corpuscular Hemoglobin 35 pg (25-35) 35 pg (25-35) Mean Corpuscular Hemoglobin Concent 34 g/dL (31-37) 34 g/dL (31-37) Red Cell Distribution Width 15.1 % (11.5-14.5) 15.4 % (11.5-14.5) Platelet Count 202 x10^3/uL (140-400) 183 x10^3/uL (140-400) Neutrophils (%) (Auto) 66 % (31-73) 58 % (31-73) Lymphocytes (%) (Auto) 27 % (24-48) 34 % (24-48) Monocytes (%) (Auto) 6 % (0-9) 6 % (0-9) Eosinophils (%) (Auto) 1 % (0-3) 1 % (0-3) Basophils (%) (Auto) 1 % (0-3) 1 % (0-3) Neutrophils # (Auto) 3.9 x10^3/uL (1.8-7.7) 3.2 x10^3/uL (1.8-7.7) Lymphocytes # (Auto) 1.6 x10^3/uL (1.0-4.8) 1.9 x10^3/uL (1.0-4.8) Monocytes # (Auto) 0.3 x10^3/uL (0.0-1.1) 0.4 x10^3/uL (0.0-1.1) Eosinophils # (Auto) 0.0 x10^3/uL (0.0-0.7) 0.0 x10^3/uL (0.0-0.7) Basophils # (Auto) 0.0 x10^3/uL (0.0-0.2) 0.0 x10^3/uL (0.0-0.2) Sodium Level 142 mmol/L (136-145) 145 mmol/L (136-145) Potassium Level 3.2 mmol/L (3.5-5.1) 3.3 mmol/L (3.5-5.1) Chloride Level 107 mmol/L (98-107) 107 mmol/L (98-107) Carbon Dioxide Level 26 mmol/L (21-32) 28 mmol/L (21-32) Anion Gap 9 (6-14) 10 (6-14) Blood Urea Nitrogen 9 mg/dL (8-26) 6 mg/dL (8-26) Creatinine 1.1 mg/dL (0.7-1.3) 1.1 mg/dL (0.7-1.3) Estimated GFR (Cockcroft-Gault) 70.9 70.9 BUN/Creatinine Ratio 8 (6-20) 5 (6-20) Glucose Level 104 mg/dL (70-99) 111 mg/dL (70-99) Calcium Level 8.5 mg/dL (8.5-10.1) 8.8 mg/dL (8.5-10.1) Total Bilirubin 1.5 mg/dL (0.2-1.0) 1.2 mg/dL (0.2-1.0) Aspartate Amino Transf (AST/SGOT) 19 U/L (15-37) 19 U/L (15-37) Alanine Aminotransferase (ALT/SGPT) 26 U/L (16-63) 24 U/L (16-63) Alkaline Phosphatase 65 U/L (46-116) 63 U/L (46-116) Ammonia 28 mcmol/L (11-34) < 10 mcmol/L (11-34) Total Protein 6.3 g/dL (6.4-8.2) 6.4 g/dL (6.4-8.2) Albumin 3.0 g/dL (3.4-5.0) 3.0 g/dL (3.4-5.0) Albumin/Globulin Ratio 0.9 (1.0-1.7) 0.9 (1.0-1.7) Glucose 2 Hour Postprandial 120 mg/dL (70-140) Laboratory Tests Test 05/06/19 22:10 05/07/19 03:40 Glucose 2 Hour Postprandial 120 mg/dL (70-140) White Blood Count 5.5 x10^3/uL (4.0-11.0) Red Blood Count 3.76 x10^6/uL (4.30-5.70) Hemoglobin 13.1 g/dL (13.0-17.5) Hematocrit 38.4 % (39.0-53.0) Mean Corpuscular Volume 102 fL (79-100) Mean Corpuscular Hemoglobin 35 pg (25-35) Mean Corpuscular Hemoglobin Concent 34 g/dL (31-37) Red Cell Distribution Width 15.4 % (11.5-14.5) Platelet Count 183 x10^3/uL (140-400) Neutrophils (%) (Auto) 58 % (31-73) Lymphocytes (%) (Auto) 34 % (24-48) Monocytes (%) (Auto) 6 % (0-9) Eosinophils (%) (Auto) 1 % (0-3) Basophils (%) (Auto) 1 % (0-3) Neutrophils # (Auto) 3.2 x10^3/uL (1.8-7.7) Lymphocytes # (Auto) 1.9 x10^3/uL (1.0-4.8) Monocytes # (Auto) 0.4 x10^3/uL (0.0-1.1) Eosinophils # (Auto) 0.0 x10^3/uL (0.0-0.7) Basophils # (Auto) 0.0 x10^3/uL (0.0-0.2) Sodium Level 145 mmol/L (136-145) Potassium Level 3.3 mmol/L (3.5-5.1) Chloride Level 107 mmol/L (98-107) Carbon Dioxide Level 28 mmol/L (21-32) Anion Gap 10 (6-14) Blood Urea Nitrogen 6 mg/dL (8-26) Creatinine 1.1 mg/dL (0.7-1.3) Estimated GFR (Cockcroft-Gault) 70.9 BUN/Creatinine Ratio 5 (6-20) Glucose Level 111 mg/dL (70-99) Calcium Level 8.8 mg/dL (8.5-10.1) Total Bilirubin 1.2 mg/dL (0.2-1.0) Aspartate Amino Transf (AST/SGOT) 19 U/L (15-37) Alanine Aminotransferase (ALT/SGPT) 24 U/L (16-63) Alkaline Phosphatase 63 U/L (46-116) Ammonia < 10 mcmol/L (11-34) Total Protein 6.4 g/dL (6.4-8.2) Albumin 3.0 g/dL (3.4-5.0) Albumin/Globulin Ratio 0.9 (1.0-1.7) Microbiology 05/05/19 Blood Culture - Preliminary, Resulted NO GROWTH AFTER 1 DAY Medications Current Medications Sodium Chloride 1,000 ml @ 1,000 mls/hr Q1H IV Last administered on 05/04/19at 13:55; Start 05/04/19 at 13:35; Stop 05/04/19 at 14:34; Status DC Lorazepam (Ativan Inj) 1 mg 1X ONCE IV Last administered on 05/04/19at 15:49; Start 05/04/19 at 15:30; Stop 05/04/19 at 15:31; Status DC Ondansetron HCl (Zofran) 4 mg PRN Q8HRS PRN IV NAUSEA/VOMITING Last administered on 05/05/19at 10:45; Start 05/04/19 at 16:15; Stop 05/05/19 at 12:19; Status DC Sodium Chloride 1,000 ml @ 125 mls/hr Q8H IV Last administered on 05/05/19at 08:44; Start 05/04/19 at 16:15; Stop 05/05/19 at 16:14; Status DC Lactobacillus Rhamnosus (Culturelle) 1 cap BID PO Last administered on 05/06/19at 21:00; Start 05/04/19 at 21:00 Multivitamins 10 ml/Thiamine HCl 100 mg/Folic Acid 1 mg/Sodium Chloride 1,011.2 ml @ 100 mls/ hr 1X ONCE IV Last administered on 05/05/19at 13:51; Start 05/05/19 at 13:00; Stop 05/05/19 at 23:06; Status DC Multivitamins (Thera M Plus) 1 tab DAILY PO Last administered on 05/06/19at 09:54; Start 05/06/19 at 09:00 Folic Acid (Folic Acid) 1 mg DAILY PO Last administered on 05/06/19at 09:54; Start 05/06/19 at 09:00 Thiamine HCl 100 mg/Dextrose 51 ml @ 100 mls/hr DAILY IV ; Start 05/06/19 at 09:00; Stop 05/10/19 at 09:31; Status UNV Lorazepam (Ativan) 4 mg PRN Q1HR PRN PO For CIWA 8-14; Start 05/05/19 at 12:15 Lorazepam (Ativan) 8 mg PRN Q1HR PRN PO For CIWA 15 or greater; Start 05/05/19 at 12:15 Lorazepam (Ativan Inj) 2 mg PRN Q1HR PRN IV For CIWA 8-14; Start 05/05/19 at 12:15 Lorazepam (Ativan Inj) 4 mg PRN Q1HR PRN IV For CIWA 15 or greater; Start 05/05/19 at 12:15 Haloperidol Lactate (Haldol Inj) 5 mg PRN Q4HRS PRN IVP H allucinatns,Confusn,Delirium; Start 05/05/19 at 12:15 Diphenhydramine HCl (Benadryl) 25 mg PRN Q15MIN PRN IVP EPS symptoms 2'Haldol admin; Start 05/05/19 at 12:15 Clonidine HCl (Catapres) 0.1 mg PRN Q1HR PRN PO SBP > 180 or DBP > 100, MRX3; Start 05/05/19 at 12:15 Lorazepam (Ativan Inj) 2 mg PRN Q15MIN PRN IV SEE COMMENTS; Start 05/05/19 at 12:15; Stop 05/05/19 at 12:12; Status DC Lorazepam (Ativan Inj) 4 mg PRN Q15MIN PRN IV SEE COMMENTS; Start 05/05/19 at 12:15; Stop 05/05/19 at 12:12; Status DC Amlodipine Besylate (Norvasc) 5 mg DAILY PO Last administered on 05/06/19at 09:54; Start 05/05/19 at 13:00 Citalopram Hydrobromide (CeleXA) 20 mg DAILY PO Last administered on 05/06/19at 09:53; Start 05/05/19 at 13:00 Metoprolol Succinate (Toprol Xl) 50 mg DAILY PO Last administered on 05/06/19at 09:55; Start 05/05/19 at 13:00 Famotidine (Pepcid) 20 mg BID PO Last administered on 05/06/19at 21:00; Start 05/05/19 at 13:00 Lactulose (Lactulose) 20 gm BID PO Last administered on 05/06/19at 21:00; Start 05/05/19 at 13:00 Thiamine Mononitrate (Vitamin B-1) 100 mg DAILY PO Last administered on 05/06/19at 09:53; Start 05/06/19 at 09:00 Sodium Chloride (Normal Saline Flush) 3 ml QSHIFT PRN IV AFTER MEDS AND BLOOD DRAWS; Start 05/05/19 at 12:15 Ondansetron HCl (Zofran) 4 mg PRN Q4HRS PRN IV NAUSEA/VOMITING; Start 05/05/19 at 12:15 Acetaminophen (Tylenol) 650 mg PRN Q4HRS PRN PO TEMP OVER 100.4F OR MILD PAIN; Start 05/05/19 at 12:15 Al Hydroxide/Mg Hydroxide (Mylanta Plus Xs) 30 ml PRN DAILY PRN PO HEARTBURN / GAS; Start 05/05/19 at 12:15 Clonidine HCl (Catapres) 0.1 mg PRN Q6HRS PRN PO SBP>160 OR DBP>90; Start 05/05/19 at 12:15 Sodium Monofluorophosphate (Fleet Adult) 133 ml PRN DAILY PRN ME CONSTIPATION; Start 05/05/19 at 12:15 Docusate Sodium (Colace) 100 mg PRN BID PRN PO CONSTIPATION; Start 05/05/19 at 12:15 Albuterol/ Ipratropium (Duoneb) 3 ml Q4HRS NEB Last administered on 05/06/19at 23:46; Start 05/05/19 at 13:00 Guaifenesin (Robitussin) 200 mg PRN Q4HRS PRN PO COUGH; Start 05/05/19 at 12:15 Lorazepam (Ativan) 0.5 mg PRN Q4HRS PRN PO ANXIETY / AGITATION Last administered on 05/05/19at 15:03; Start 05/05/19 at 12:15 Lorazepam (Ativan Inj) 2 mg PRN Q4HRS PRN IV ANXIETY / AGITATION; Start 05/05/19 at 12:15 Enoxaparin Sodium (Lovenox 40mg Syringe) 40 mg DAILY SQ Last administered on 05/06/19at 09:56; Start 05/05/19 at 12:30 Lactulose (Lactulose) 30 gm 1X ONCE PO ; Start 05/05/19 at 16:00; Stop 05/05/19 at 16:01; Status DC Potassium Chloride (Klor-Con) 40 meq 1X ONCE PO Last administered on 05/06/19at 09:58; Start 05/06/19 at 09:30; Stop 05/06/19 at 09:31; Status DC Potassium Chloride (Klor-Con) 20 meq DAILYWBKFT PO ; Start 05/07/19 at 08:00 Insulin Human Lispro (HumaLOG) 0-5 UNITS TIDWMEALS SQ ; Start 05/07/19 at 08:00 Dextrose (Dextrose 50%-Water Syringe) 12.5 gm PRN Q15MIN PRN IV SEE COMMENTS; Start 05/06/19 at 21:00 Dextrose 250 ml PRN Q15MIN PRN IV SEE COMMENTS; Start 05/06/19 at 21:00 Active Scripts Active Reported Celexa (Citalopram Hydrobromide) 20 Mg Tablet 1 Tab PO DAILY Metoprolol Tartrate 50 Mg Tablet 1 Tab PO DAILY Amlodipine Besylate 5 Mg Tablet 5 Mg PO DAILY [citalopram] DAILY [amlodip] DAILY [metoprolol] BID Vitals/I & O Vital Sign - Last 24 Hours 05/06/19 05/06/19 05/06/19 05/06/19 07:42 08:00 09:54 09:55 Temp 97.6 97.6 Pulse 85 85 85 Resp 20 B/P (MAP) 158/83 (108) 158/83 158/83 Pulse Ox 97 O2 Delivery Nasal Cannula Room Air O2 Flow Rate 3.0 05/06/19 05/06/19 05/06/19 05/06/19 11:30 11:46 15:48 15:49 Temp 97.6 98.6 97.6 98.6 Pulse 86 88 Resp 20 18 B/P (MAP) 156/98 (117) 138/74 (95) Pulse Ox 95 95 96 98 O2 Delivery Nasal Cannula Room Air Nasal Cannula Room Air O2 Flow Rate 3.0 3.0 05/06/19 05/06/19 05/06/19 05/06/19 19:25 19:56 20:31 23:38 Temp 98.5 97.7 98.5 97.7 Pulse 95 96 Resp 16 16 B/P (MAP) 156/88 (110) 161/92 (115) Pulse Ox 93 95 95 O2 Delivery Nasal Cannula Room Air Room Air Room Air O2 Flow Rate 3.0 3.0 05/06/19 05/07/19 23:46 03:11 Temp 97.9 97.9 Pulse 80 Resp 16 B/P (MAP) 160/86 (110) Pulse Ox 98 O2 Delivery Room Air Room Air Intake and Output 05/06/19 05/06/19 05/07/19 14:59 22:59 06:59 Intake Total 400 ml 400 ml Balance 400 ml 400 ml MARLENE CUETO MD May 07, 2019 07:23
[2019-05-07 07:39] VITALS: BP 149/87
--- NOTE | 2019-05-07 07:53 | RAD ---
CHEST PA LATERAL History: Hypoxia Comparison: None. Findings: The cardiomediastinal silhouette is normal. Pulmonary vasculature is normal. The lungs are clear. No pleural effusion or pneumothorax is seen. There is no acute bone abnormality. Subtle dextro convexity of the thoracic spine is noted. IMPRESSION: No acute cardiopulmonary process. Electronically signed by: Chidi Wright MD (05/07/2019 7:50 AM) [facility]
[2019-05-07] MEDS ORDERED: POTASSIUM CHLORIDE 20 MEQ TABLET.ER. PO SCH (08:00)
[2019-05-07] MEDS: INSULIN LISPRO 300 UNITS/3 ML VIAL. SQ SCH ×2 (08:58→12:00)
[2019-05-07] MEDS ORDERED: FLU VAX QS 2019-20 (36MOS+)/PF 0.5 ML SYRINGE. VAX IM ONE (09:00)
[2019-05-07] MEDS: CITALOPRAM 20 MG TABLET. PO SCH (09:00)
[2019-05-07] MEDS: FOLIC ACID 1 MG TABLET. PO SCH (09:01)
[2019-05-07] MEDS: LACTOBACILLUS RHAMNOSUS GG 1 CAPSULE. PO SCH (09:01)
[2019-05-07] MEDS: LACTULOSE 20 GM/30 ML SOLUTION. PO SCH (09:02)
[2019-05-07] MEDS: FAMOTIDINE 20 MG TABLET. PO SCH (09:02)
[2019-05-07] MEDS: amLODIPine BESYLATE 5 MG TABLET PO SCH (09:02)
[2019-05-07] MEDS: MULTIVITAMIN with MINERAL TABLET. PO SCH (09:03)
[2019-05-07] MEDS: METOPROLOL SUCC 24HR ER 50 MG TAB.ER.24H. PO SCH (09:03)
[2019-05-07] MEDS: ENOXAPARIN 40 MG/0.4 ML SYRINGE. SQ SCH (09:04)
[2019-05-07] MEDS: THIAMINE 100 MG TABLET. PO SCH (09:04)
[2019-05-07 10:19] LABS: BILIRUBIN,URINE NEGATIVE (NEG); CLARITY,URINE CLEAR; COLOR,URINE YELLOW; NITRITE,URINE NEGATIVE (NEG); PH,URINE 6.5; PROTEIN,URINE >=300 mg/dL (NEG-TRACE)
[2019-05-07 10:41] LABS: SQUAMOUS EPITHELIAL CELL,UR OCC /LPF
[2019-05-07 10:53] LABS: BACTERIA,URINE 0 /HPF (0-FEW); WBC,URINE 0 /HPF (0-4)
[2019-05-07 11:08] VITALS: BP 136/89
--- NOTE | 2019-05-07 11:09 | PDOC ---
Subjective: Subjective: No complaints. Eating and stooling w/o issue. Objective: Vital Signs: Vital Signs Date Time Temp Pulse Resp B/P (MAP) Pulse Ox O2 Delivery O2 Flow Rate FiO2 05/07/19 09:03 112 149/87 05/07/19 07:39 98.3 18 98 Room Air 98.3 05/06/19 19:56 3.0 Labs: Laboratory Tests Test 05/06/19 22:10 05/07/19 03:40 05/07/19 07:12 05/07/19 09:50 Glucose 2 Hour Postprandial 120 mg/dL White Blood Count 5.5 x10^3/uL Red Blood Count 3.76 x10^6/uL Hemoglobin 13.1 g/dL Hematocrit 38.4 % Mean Corpuscular Volume 102 fL Mean Corpuscular Hemoglobin 35 pg Mean Corpuscular Hemoglobin Concent 34 g/dL Red Cell Distribution Width 15.4 % Platelet Count 183 x10^3/uL Neutrophils (%) (Auto) 58 % Lymphocytes (%) (Auto) 34 % Monocytes (%) (Auto) 6 % Eosinophils (%) (Auto) 1 % Basophils (%) (Auto) 1 % Neutrophils # (Auto) 3.2 x10^3/uL Lymphocytes # (Auto) 1.9 x10^3/uL Monocytes # (Auto) 0.4 x10^3/uL Eosinophils # (Auto) 0.0 x10^3/uL Basophils # (Auto) 0.0 x10^3/uL Sodium Level 145 mmol/L Potassium Level 3.3 mmol/L Chloride Level 107 mmol/L Carbon Dioxide Level 28 mmol/L Anion Gap 10 Blood Urea Nitrogen 6 mg/dL Creatinine 1.1 mg/dL Estimated GFR (Cockcroft-Gault) 70.9 BUN/Creatinine Ratio 5 Glucose Level 111 mg/dL Calcium Level 8.8 mg/dL Total Bilirubin 1.2 mg/dL Aspartate Amino Transf (AST/SGOT) 19 U/L Alanine Aminotransferase (ALT/SGPT) 24 U/L Alkaline Phosphatase 63 U/L Ammonia < 10 mcmol/L Total Protein 6.4 g/dL Albumin 3.0 g/dL Albumin/Globulin Ratio 0.9 Glucose (Fingerstick) 125 mg/dL Urine Collection Type Unknown Urine Color Yellow Urine Clarity Clear Urine pH 6.5 Urine Specific [place] 1.015 Urine Protein >=300 mg/dL Urine Glucose (UA) Negative mg/dL Urine Ketones (Stick) Negative mg/dL Urine Blood Large Urine Nitrite Negative Urine Bilirubin Negative Urine Urobilinogen Dipstick 1.0 mg/dL Urine Leukocyte Esterase Negative Urine RBC 11-20 /HPF Urine WBC 0 /HPF Urine Squamous Epithelial Cells Occ /LPF Urine Bacteria 0 /HPF Urine Mucus Slight /LPF Imaging: CXR 05/06 IMPRESSION: No acute cardiopulmonary process. PE: GEN: NAD LUNGS: CTAB HEART: RRR ABD: NABS, S/ND/NT NEURO/PSYCH: A & O 3 A/P: Alcohol intoxication Hyperammonemia - resolved Macrocytosis Hepatic steatosis, mildly elevated bilirubin (better) -- DC per primary. MARYAN ALCARAZ May 07, 2019 11:09
--- NOTE | 2019-05-07 11:20 | PDOC3 ---
Discharge Summary Date of Admission: May 04, 2019 Date of Discharge: May 07, 2019 Follow-Up: 1-2 days, 3-5 days Admitting Diagnosis comment: discharge dx severe alcohol abuse, heavy binging on weekends Alcohol intoxication elevated ammonia level. resolved hepatic encephalopathy. RESOLVED acute hypoxic resp failure DEPRESSION HYPERTENSION falls HYPOKALEMIA 05/06 Some tremor , anxiety overnight, no hallucinations 05/07 ok will d/c home needs DAILY AA MEETINGS admit p.r.n. benzos. DVT prophylaxis. Home meds, IV fluids, full code, q. 4 hours neuro checks. BiPAP support ALCOHOL WITHDRAWAL PROTOCOL ABD SONO LACTULOSE 20CC BID GI CONSULT neurology consult PT/OT REPLACE K History: Hypoxia Comparison: None. Findings: The cardiomediastinal silhouette is normal. Pulmonary vasculature is normal. The lungs are clear. No pleural effusion or pneumothorax is seen. There is no acute bone abnormality. Subtle dextro convexity of the thoracic spine is noted. IMPRESSION: No acute cardiopulmonary process. Electronically signed by: Chidi Wright MD (05/07/2019 7:50 AM) [facility] 05/05lo discussion in room with parents and sister, need for treatment, AA// PAT TEAM CONSULT 25 min pt exam, chart review D/C PLANNING TIME , > 50% of time spent with exam, chart review, pt care coordination Vitals ON ROOM AIR Vitals Vital Signs Date Time Temp Pulse Resp B/P (MAP) Pulse Ox O2 Delivery O2 Flow Rate FiO2 05/07/19 03:11 97.9 80 16 160/86 (110) 98 Room Air 97.9 05/06/19 19:56 3.0 Physical Exam Physical Exam GENERAL: No apparent distress. Alert and oriented. GOOD AFFECT HEENT: Head is normocephalic, atraumatic, pupils were equally round and reactive to light and accommodation. NECK: Supple, no JVD, no thyromegaly was noted. LUNGS: Clear to auscultation in all lung vera without rhonchi or wheezing. HEART: RRR, S1, S2 present. Peripheral pulses intact, no obvious murmurs were noted. ABDOMEN: Soft, nontender. Positive bowel sounds no organomegaly, normal bowel sounds. EXTREMITIES: Without any cyanosis, clubbing, or edema. Pedal pulses intact, Homans sign is negative. NEUROLOGIC: He is snoring. PSYCHIATRIC: Normal affect, normal mood. Stable. SKIN: No ulcerations or rashes, good skin turgor, no jaundice. VASCULAR: Good capillary refill, neurovascular bundle appears to be intact. General: Alert, Oriented X3, Cooperative, No acute distress Heart: Regular rate, Normal S1, Normal S2, No murmurs Lungs: Clear Abdomen: Normal bowel sounds, Soft, No tenderness Extremities: No clubbing, No cyanosis, No edema, No tenderness/swelling Skin: No breakdown, No significant lesion FINAL DIAGNOSIS Problems Medical Problems: (1) Alcohol intoxication Status: Acute (2) Hepatic encephalopathy Status: Acute Brief Hospital Course Mr. Flynn is a 49 old [sex] who presented with [ ALCOHOL ABUSE HX ] CONDITION AT DISCHARGE: Improved Discharge Medications Current Medications Sodium Chloride 1,000 ml @ 1,000 mls/hr Q1H IV Last administered on 05/04/19at 13:55; Start 05/04/19 at 13:35; Stop 05/04/19 at 14:34; Status DC Lorazepam (Ativan Inj) 1 mg 1X ONCE IV Last administered on 05/04/19at 15:49; Start 05/04/19 at 15:30; Stop 05/04/19 at 15:31; Status DC Ondansetron HCl (Zofran) 4 mg PRN Q8HRS PRN IV NAUSEA/VOMITING Last administered on 05/05/19at 10:45; Start 05/04/19 at 16:15; Stop 05/05/19 at 12:19; Status DC Sodium Chloride 1,000 ml @ 125 mls/hr Q8H IV Last administered on 05/05/19at 08:44; Start 05/04/19 at 16:15; Stop 05/05/19 at 16:14; Status DC Lactobacillus Rhamnosus (Culturelle) 1 cap BID PO Last administered on 05/07/19at 09:01; Start 05/04/19 at 21:00 Multivitamins 10 ml/Thiamine HCl 100 mg/Folic Acid 1 mg/Sodium Chloride 1,011.2 ml @ 100 mls/ hr 1X ONCE IV Last administered on 05/05/19at 13:51; Start 05/05/19 at 13:00; Stop 05/05/19 at 23:06; Status DC Multivitamins (Thera M Plus) 1 tab DAILY PO Last administered on 05/07/19at 09:03; Start 05/06/19 at 09:00 Folic Acid (Folic Acid) 1 mg DAILY PO Last administered on 05/07/19at 09:01; Start 05/06/19 at 09:00 Thiamine HCl 100 mg/Dextrose 51 ml @ 100 mls/hr DAILY IV ; Start 05/06/19 at 09:00; Stop 05/10/19 at 09:31; Status UNV Lorazepam (Ativan) 4 mg PRN Q1HR PRN PO For CIWA 8-14; Start 05/05/19 at 12:15 Lorazepam (Ativan) 8 mg PRN Q1HR PRN PO For CIWA 15 or greater; Start 05/05/19 at 12:15 Lorazepam (Ativan Inj) 2 mg PRN Q1HR PRN IV For CIWA 8-14; Start 05/05/19 at 12:15 Lorazepam (Ativan Inj) 4 mg PRN Q1HR PRN IV For CIWA 15 or greater; Start 05/05/19 at 12:15 Haloperidol Lactate (Haldol Inj) 5 mg PRN Q4HRS PRN IVP Hallucinatns,Confusn,Delirium; Start 05/05/19 at 12:15 Diphenhydramine HCl (Benadryl) 25 mg PRN Q15MIN PRN IVP EPS symptoms 2'Haldol admin; Start 05/05/19 at 12:15 Clonidine HCl (Catapres) 0.1 mg PRN Q1HR PRN PO SBP > 180 or DBP > 100, MRX3; Start 05/05/19 at 12:15 Lorazepam (Ativan Inj) 2 mg PRN Q15MIN PRN IV SEE COMMENTS; Start 05/05/19 at 12:15; Stop 05/05/19 at 12:12; Status DC Lorazepam (Ativan Inj) 4 mg PRN Q15MIN PRN IV SEE COMMENTS; Start 05/05/19 at 12:15; Stop 05/05/19 at 12:12; Status DC Amlodipine Besylate (Norvasc) 5 mg DAILY PO Last administered on 05/07/19at 09:02; Start 05/05/19 at 13:00 Citalopram Hydrobromide (CeleXA) 20 mg DAILY PO Last administered on 05/07/19at 09:00; Start 05/05/19 at 13:00 Metoprolol Succinate (Toprol Xl) 50 mg DAILY PO Last administered on 05/07/19at 09:03; Start 05/05/19 at 13:00 Famotidine (Pepcid) 20 mg BID PO Last administered on 05/07/19at 09:02; Start 05/05/19 at 13:00 Lactulose (Lactulose) 20 gm BID PO Last administered on 05/07/19at 09:02; Start 05/05/19 at 13:00 Thiamine Mononitrate (Vitamin B-1) 100 mg DAILY PO Last administered on 05/07/19at 09:04; Start 05/06/19 at 09:00 Sodium Chloride (Normal Saline Flush) 3 ml QSHIFT PRN IV AFTER MEDS AND BLOOD DRAWS; Start 05/05/19 at 12:15 Ondansetron HCl (Zofran) 4 mg PRN Q4HRS PRN IV NAUSEA/VOMITING; Start 05/05/19 at 12:15 Acetaminophen (Tylenol) 650 mg PRN Q4HRS PRN PO TEMP OVER 100.4F OR MILD PAIN; Start 05/05/19 at 12:15 Al Hydroxide/Mg Hydroxide (Mylanta Plus Xs) 30 ml PRN DAILY PRN PO HEARTBURN / GAS; Start 05/05/19 at 12:15 Clonidine HCl (Catapres) 0.1 mg PRN Q6HRS PRN PO SBP>160 OR DBP>90; Start 05/05/19 at 12:15 Sodium Monofluorophosphate (Fleet Adult) 133 ml PRN DAILY PRN PA CONSTIPATION; Start 05/05/19 at 12:15 Docusate Sodium (Colace) 100 mg PRN BID PRN PO CONSTIPATION; Start 05/05/19 at 12:15 Albuterol/ Ipratropium (Duoneb) 3 ml Q4HRS NEB Last administered on 05/07/19at 07:34; Start 05/05/19 at 13:00 Guaifenesin (Robitussin) 200 mg PRN Q4HRS PRN PO COUGH; Start 05/05/19 at 12:15 Lorazepam (Ativan) 0.5 mg PRN Q4HRS PRN PO ANXIETY / AGITATION Last administered on 05/05/19at 15:03; Start 05/05/19 at 12:15 Lorazepam (Ativan Inj) 2 mg PRN Q4HRS PRN IV ANXIETY / AGITATION; Start 05/05/19 at 12:15 Enoxaparin Sodium (Lovenox 40mg Syringe) 40 mg DAILY SQ Last administered on 05/07/19at 09:04; Start 05/05/19 at 12:30 Lactulose (Lactulose) 30 gm 1X ONCE PO ; Start 05/05/19 at 16:00; Stop 05/05/19 at 16:01; Status DC Potassium Chloride (Klor-Con) 40 meq 1X ONCE PO Last administered on 05/06/19at 09:58; Start 05/06/19 at 09:30; Stop 05/06/19 at 09:31; Status DC Potassium Chloride (Klor-Con) 20 meq DAILYWBKFT PO Last administered on 05/07/19at 09:00; Start 05/07/19 at 08:00 Insulin Human Lispro (HumaLOG) 0-5 UNITS TIDWMEALS SQ ; Start 05/07/19 at 08:00 Dextrose (Dextrose 50%-Water Syringe) 12.5 gm PRN Q15MIN PRN IV SEE COMMENTS; Start 05/06/19 at 21:00 Dextrose 250 ml PRN Q15MIN PRN IV SEE COMMENTS; Start 05/06/19 at 21:00 Influenza Virus Vaccine Quadrival (Afluria Quad 2019-20 (3yr Up) Syringe) 0.5 ml ONCE ONCE VAX IM ; Start 05/07/19 at 09:00; Stop 05/07/19 at 09:01; Status DC Active Scripts Active Reported Celexa (Citalopram Hydrobromide) 20 Mg Tablet 1 Tab PO DAILY Metoprolol Tartrate 50 Mg Tablet 1 Tab PO DAILY Amlodipine Besylate 5 Mg Tablet 5 Mg PO DAILY [citalopram] DAILY [amlodip] DAILY [metoprolol] BID Vital Signs Vital Signs Date Time Temp Pulse Resp B/P (MAP) Pulse Ox O2 Delivery O2 Flow Rate FiO2 05/07/19 11:08 97.3 97 20 136/89 (105) 96 Room Air 97.3 05/06/19 19:56 3.0 Labs Laboratory Tests Test 05/05/19 12:15 05/06/19 03:39 05/06/19 22:10 05/07/19 03:40 Urine Opiates Screen Neg (NEG) Urine Methadone Screen Neg (NEG) Urine Barbiturates Neg (NEG) Urine Phencyclidine Screen Neg (NEG) Urine Amphetamine/Methamphetamine Neg (NEG) Urine Benzodiazepines Screen Neg (NEG) Urine Cocaine Screen Neg (NEG) Urine Cannabinoids Screen Neg (NEG) Urine Ethyl Alcohol Pos (NEG) White Blood Count 5.8 x10^3/uL (4.0-11.0) 5.5 x10^3/uL (4.0-11.0) Red Blood Count 3.82 x10^6/uL (4.30-5.70) 3.76 x10^6/uL (4.30-5.70) Hemoglobin 13.2 g/dL (13.0-17.5) 13.1 g/dL (13.0-17.5) Hematocrit 38.6 % (39.0-53.0) 38.4 % (39.0-53.0) Mean Corpuscular Volume 101 fL (79-100) 102 fL (79-100) Mean Corpuscular Hemoglobin 35 pg (25-35) 35 pg (25-35) Mean Corpuscular Hemoglobin Concent 34 g/dL (31-37) 34 g/dL (31-37) Red Cell Distribution Width 15.1 % (11.5-14.5) 15.4 % (11.5-14.5) Platelet Count 202 x10^3/uL (140-400) 183 x10^3/uL (140-400) Neutrophils (%) (Auto) 66 % (31-73) 58 % (31-73) Lymphocytes (%) (Auto) 27 % (24-48) 34 % (24-48) Monocytes (%) (Auto) 6 % (0-9) 6 % (0-9) Eosinophils (%) (Auto) 1 % (0-3) 1 % (0-3) Basophils (%) (Auto) 1 % (0-3) 1 % (0-3) Neutrophils # (Auto) 3.9 x10^3/uL (1.8-7.7) 3.2 x10^3/uL (1.8-7.7) Lymphocytes # (Auto) 1.6 x10^3/uL (1.0-4.8) 1.9 x10^3/uL (1.0-4.8) Monocytes # (Auto) 0.3 x10^3/uL (0.0-1.1) 0.4 x10^3/uL (0.0-1.1) Eosinophils # (Auto) 0.0 x10^3/uL (0.0-0.7) 0.0 x10^3/uL (0.0-0.7) Basophils # (Auto) 0.0 x10^3/uL (0.0-0.2) 0.0 x10^3/uL (0.0-0.2) Sodium Level 142 mmol/L (136-145) 145 mmol/L (136-145) Potassium Level 3.2 mmol/L (3.5-5.1) 3.3 mmol/L (3.5-5.1) Chloride Level 107 mmol/L (98-107) 107 mmol/L (98-107) Carbon Dioxide Level 26 mmol/L (21-32) 28 mmol/L (21-32) Anion Gap 9 (6-14) 10 (6-14) Blood Urea Nitrogen 9 mg/dL (8-26) 6 mg/dL (8-26) Creatinine 1.1 mg/dL (0.7-1.3) 1.1 mg/dL (0.7-1.3) Estimated GFR (Cockcroft-Gault) 70.9 70.9 BUN/Creatinine Ratio 8 (6-20) 5 (6-20) Glucose Level 104 mg/dL (70-99) 111 mg/dL (70-99) Calcium Level 8.5 mg/dL (8.5-10.1) 8.8 mg/dL (8.5-10.1) Total Bilirubin 1.5 mg/dL (0.2-1.0) 1.2 mg/dL (0.2-1.0) Aspartate Amino Transf (AST/SGOT) 19 U/L (15-37) 19 U/L (15-37) Alanine Aminotransferase (ALT/SGPT) 26 U/L (16-63) 24 U/L (16-63) Alkaline Phosphatase 65 U/L (46-116) 63 U/L (46-116) Ammonia 28 mcmol/L (11-34) < 10 mcmol/L (11-34) Total Protein 6.3 g/dL (6.4-8.2) 6.4 g/dL (6.4-8.2) Albumin 3.0 g/dL (3.4-5.0) 3.0 g/dL (3.4-5.0) Albumin/Globulin Ratio 0.9 (1.0-1.7) 0.9 (1.0-1.7) Glucose 2 Hour Postprandial 120 mg/dL (70-140) Test 05/07/19 07:12 05/07/19 09:50 Glucose (Fingerstick) 125 mg/dL (70-99) Urine Collection Type Unknown Urine Color Yellow Urine Clarity Clear Urine pH 6.5 Urine Specific [place] 1.015 Urine Protein >=300 mg/dL (NEG-TRACE) Urine Glucose (UA) Negative mg/dL (NEG) Urine Ketones (Stick) Negative mg/dL (NEG) Urine Blood Large (NEG) Urine Nitrite Negative (NEG) Urine Bilirubin Negative (NEG) Urine Urobilinogen Dipstick 1.0 mg/dL (0.2 mg/dL) Urine Leukocyte Esterase Negative (NEG) Urine RBC 11-20 /HPF (0-2) Urine WBC 0 /HPF (0-4) Urine Squamous Epithelial Cells Occ /LPF Urine Bacteria 0 /HPF (0-FEW) Urine Mucus Slight /LPF Laboratory Tests Test 05/06/19 22:10 05/07/19 03:40 05/07/19 07:12 05/07/19 09:50 Glucose 2 Hour Postprandial 120 mg/dL (70-140) White Blood Count 5.5 x10^3/uL (4.0-11.0) Red Blood Count 3.76 x10^6/uL (4.30-5.70) Hemoglobin 13.1 g/dL (13.0-17.5) Hematocrit 38.4 % (39.0-53.0) Mean Corpuscular Volume 102 fL (79-100) Mean Corpuscular Hemoglobin 35 pg (25-35) Mean Corpuscular Hemoglobin Concent 34 g/dL (31-37) Red Cell Distribution Width 15.4 % (11.5-14.5) Platelet Count 183 x10^3/uL (140-400) Neutrophils (%) (Auto) 58 % (31-73) Lymphocytes (%) (Auto) 34 % (24-48) Monocytes (%) (Auto) 6 % (0-9) Eosinophils (%) (Auto) 1 % (0-3) Basophils (%) (Auto) 1 % (0-3) Neutrophils # (Auto) 3.2 x10^3/uL (1.8-7.7) Lymphocytes # (Auto) 1.9 x10^3/uL (1.0-4.8) Monocytes # (Auto) 0.4 x10^3/uL (0.0-1.1) Eosinophils # (Auto) 0.0 x10^3/uL (0.0-0.7) Basophils # (Auto) 0.0 x10^3/uL (0.0-0.2) Sodium Level 145 mmol/L (136-145) Potassium Level 3.3 mmol/L (3.5-5.1) Chloride Level 107 mmol/L (98-107) Carbon Dioxide Level 28 mmol/L (21-32) Anion Gap 10 (6-14) Blood Urea Nitrogen 6 mg/dL (8-26) Creatinine 1.1 mg/dL (0.7-1.3) Estimated GFR (Cockcroft-Gault) 70.9 BUN/Creatinine Ratio 5 (6-20) Glucose Level 111 mg/dL (70-99) Calcium Level 8.8 mg/dL (8.5-10.1) Total Bilirubin 1.2 mg/dL (0.2-1.0) Aspartate Amino Transf (AST/SGOT) 19 U/L (15-37) Alanine Aminotransferase (ALT/SGPT) 24 U/L (16-63) Alkaline Phosphatase 63 U/L (46-116) Ammonia < 10 mcmol/L (11-34) Total Protein 6.4 g/dL (6.4-8.2) Albumin 3.0 g/dL (3.4-5.0) Albumin/Globulin Ratio 0.9 (1.0-1.7) Glucose (Fingerstick) 125 mg/dL (70-99) Urine Collection Type Unknown Urine Color Yellow Urine Clarity Clear Urine pH 6.5 Urine Specific [place] 1.015 Urine Protein >=300 mg/dL (NEG-TRACE) Urine Glucose (UA) Negative mg/dL (NEG) Urine Ketones (Stick) Negative mg/dL (NEG) Urine Blood Large (NEG) Urine Nitrite Negative (NEG) Urine Bilirubin Negative (NEG) Urine Urobilinogen Dipstick 1.0 mg/dL (0.2 mg/dL) Urine Leukocyte Esterase Negative (NEG) Urine RBC 11-20 /HPF (0-2) Urine WBC 0 /HPF (0-4) Urine Squamous Epithelial Cells Occ /LPF Urine Bacteria 0 /HPF (0-FEW) Urine Mucus Slight /LPF Allergies Allergies Coded Allergies Type Severity Reaction Last Updated Verified No Known Drug Allergies 05/04/19 No Disposition/Orders: D/C to Home Patient Instructions D/C PLANNING 25 MIN MARLENE CUETO MD May 07, 2019 11:20
[2019-05-07] MEDS ORDERED: MULT1TAB90 PO (11:24)
[2019-05-07] MEDS ORDERED: LACT20SO PO (11:24)
[2019-05-07] MEDS ORDERED: FOLI1TAB16 PO (11:24)
[2019-05-07] MEDS ORDERED: THIA100T22 PO (11:24)
[2019-05-07] MEDS ORDERED: FAMO20TA5 PO (11:24)
--- NOTE | 2019-05-07 11:26 | DISCH ---
DISCHARGE INSTRUCTIONS Condition on Discharge Condition on Discharge: Stable Activity After Discharge Activity Instructions for Disc: Activity as tolerated Lifting Instructions after Dis: No heavy lifting, No pulling or pushing Driving Instructions after Dis: Do not drive today Weight Bearing Status after Di: As tolerated Diet after Discharge Diet after Discharge: Low Sodium 2 gm Checks after Discharge Checks after discharge: Check blood press - daily Contacting the DR. after DC Call your doctor for: If your condition worsens Treatment/Equipment after DC Adaptive Equipment Issued: None MARLENE CUETO MD May 07, 2019 11:26
--- NOTE | 2019-05-07 13:50 | NUR ---
Discharge teaching provided written and verbal to pt,understanding verbalized. Dismissed to home with all belongings accompanied by his father. Transported to exit per w/c at 1350.
--- NOTE | 2019-05-07 17:59 | PDOC ---
PROGRESS NOTES Assessment Assessment Toxical encephalopathy. Alcohol intoxication, ETOH level 463. Metabolic encephalopthy. DM. Alcohol abuse. Obesity. RECOMMENDATIONS/PLAN: Detoxication treatment. Vit B1 supplement. Treat medical diseases. Patient education for alcohol abstinence. FU with PCP. HISTORY OF THE PRESENT ILLNESS: This is a pleasant 49-year-old male who brought to the ER of [facility] due to alcohol intoxication. Per his statement, he was walking with his dog then LOC. He was found dome LOC on the ground by bystander. He has gait instability after gained consciousness. He has longstanding history of alcohol use/abuse for more than 30 years several times a week drinking several beers or alcohol each time. When he got here, he has got an alcohol level of 463. No seizure reported. He stated he felt better. PAST MEDICAL HISTORY: Alcoholism, but apparently he does not drink regularly, but his dad states he has binges. FAMILY HISTORY: Hypertension. SOCIAL HISTORY: He drinks vodka, but intermittently. 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 He lives at home with his parents reportedly. ALLERGY: NKDA MEDICATIONS: Refer to MAR REVIEW OF SYSTEMS: Constitutional: No malnutrition, weight loss, cachexia. Head: No traumatic brain or head injury. Skin: No edema, or rash. Ear: No infection. Eyes: No vision loss or color blindness. Nose: No bleeding or purulent discharges. Hearing: No hearing decrease. Neck: No injury. Cardiac: No OK, arrhythmia,claudication. Pulmonary: No COPD. GI: No GI ulcer, GI bleeding. Urinary/genital: No dysuria, incontinence, urinary retention. Endocrinologic: Diabetes Mellitus. Skeletomuscular: No muscular atrophy, deformity. Neurological: see HP. Psychiatric: Denies drug use/abuse. Otherwise, not [id number] review of systems. PHYSICAL EXAMINATION: General appearance is in subacute distress. HEENT: Normocephalic and nontraumatic. Eyes, nose, ears, and throat are unremarkable. Neck is supple. No lymphadenopathy. No crepitus. Cardiovascular: S1, S2, regular rate and rhythm. Pulmonary: Clear to auscultation bilaterally. Abdomen: Bowel sounds are positive. Extremities: No rash, lesions, or edema. No restriction of range of motion NEUROLOGICAL EXAMINATION: Awake. Oriented to time, place and person. PERRL. EOMI. CN: no focal findings. Muscle tone: within normal. Muscle strength: 5 DTR: 2 Plantar reflex: Flexor/Neutral response bilaterally Gait: At his baseline normal. Sensory exam: no abnormal findings. F-T-N test not accurate. Objective Objective Vital Signs Date Time Temp Pulse Resp B/P (MAP) Pulse Ox O2 Delivery O2 Flow Rate FiO2 05/07/19 11:13 95 Room Air 05/07/19 11:08 97.3 97 20 136/89 (105) 97.3 05/06/19 19:56 3.0 Intake and Output 05/07/19 06:59 Intake Total 800 ml Balance 800 ml Intake Oral 800 ml # Voids 3 Vitals Signs Vitals VS - Last 72 Hours, by Label Date Time Temp Pulse Resp B/P (MAP) Pulse Ox O2 Delivery O2 Flow Rate FiO2 05/07/19 11:13 95 Room Air 05/07/19 11:08 97.3 97 20 136/89 (105) 96 Room Air 97.3 05/07/19 09:03 112 149/87 05/07/19 09:02 112 149/87 05/07/19 08:00 Room Air 05/07/19 07:39 98.3 112 18 149/87 (107) 98 Room Air 98.3 05/07/19 07:34 94 Room Air 05/07/19 03:11 97.9 80 16 160/86 (110) 98 Room Air 97.9 05/06/19 23:46 Room Air 05/06/19 23:38 97.7 96 16 161/92 (115) 95 Room Air 97.7 05/06/19 20:31 95 Room Air 05/06/19 19:56 Room Air 3.0 05/06/19 19:25 98.5 95 16 156/88 (110) 93 Nasal Cannula 3.0 98.5 05/06/19 15:49 98 Room Air 05/06/19 15:48 98.6 88 18 138/74 (95) 96 Nasal Cannula 3.0 98.6 05/06/19 11:46 95 Room Air 05/06/19 11:30 97.6 86 20 156/98 (117) 95 Nasal Cannula 3.0 97.6 05/06/19 09:55 85 158/83 05/06/19 09:54 85 158/83 05/06/19 08:00 Room Air 05/06/19 07:42 97.6 85 20 158/83 (108) 97 Nasal Cannula 3.0 97.6 05/06/19 07:07 98 Room Air Laboratory Laboratory Laboratory Tests Test 05/06/19 22:10 05/07/19 03:40 05/07/19 07:12 05/07/19 09:50 Glucose 2 Hour Postprandial 120 mg/dL (70-140) White Blood Count 5.5 x10^3/uL (4.0-11.0) Red Blood Count 3.76 x10^6/uL (4.30-5.70) Hemoglobin 13.1 g/dL (13.0-17.5) Hematocrit 38.4 % (39.0-53.0) Mean Corpuscular Volume 102 fL (79-100) Mean Corpuscular Hemoglobin 35 pg (25-35) Mean Corpuscular Hemoglobin Concent 34 g/dL (31-37) Red Cell Distribution Width 15.4 % (11.5-14.5) Platelet Count 183 x10^3/uL (140-400) Neutrophils (%) (Auto) 58 % (31-73) Lymphocytes (%) (Auto) 34 % (24-48) Monocytes (%) (Auto) 6 % (0-9) Eosinophils (%) (Auto) 1 % (0-3) Basophils (%) (Auto) 1 % (0-3) Neutrophils # (Auto) 3.2 x10^3/uL (1.8-7.7) Lymphocytes # (Auto) 1.9 x10^3/uL (1.0-4.8) Monocytes # (Auto) 0.4 x10^3/uL (0.0-1.1) Eosinophils # (Auto) 0.0 x10^3/uL (0.0-0.7) Basophils # (Auto) 0.0 x10^3/uL (0.0-0.2) Sodium Level 145 mmol/L (136-145) Potassium Level 3.3 mmol/L (3.5-5.1) Chloride Level 107 mmol/L (98-107) Carbon Dioxide Level 28 mmol/L (21-32) Anion Gap 10 (6-14) Blood Urea Nitrogen 6 mg/dL (8-26) Creatinine 1.1 mg/dL (0.7-1.3) Estimated GFR (Cockcroft-Gault) 70.9 BUN/Creatinine Ratio 5 (6-20) Glucose Level 111 mg/dL (70-99) Calcium Level 8.8 mg/dL (8.5-10.1) Total Bilirubin 1.2 mg/dL (0.2-1.0) Aspartate Amino Transf (AST/SGOT) 19 U/L (15-37) Alanine Aminotransferase (ALT/SGPT) 24 U/L (16-63) Alkaline Phosphatase 63 U/L (46-116) Ammonia < 10 mcmol/L (11-34) Total Protein 6.4 g/dL (6.4-8.2) Albumin 3.0 g/dL (3.4-5.0) Albumin/Globulin Ratio 0.9 (1.0-1.7) Glucose (Fingerstick) 125 mg/dL (70-99) Urine Collection Type Unknown Urine Color Yellow Urine Clarity Clear Urine pH 6.5 Urine Specific [place] 1.015 Urine Protein >=300 mg/dL (NEG-TRACE) Urine Glucose (UA) Negative mg/dL (NEG) Urine Ketones (Stick) Negative mg/dL (NEG) Urine Blood Large (NEG) Urine Nitrite Negative (NEG) Urine Bilirubin Negative (NEG) Urine Urobilinogen Dipstick 1.0 mg/dL (0.2 mg/dL) Urine Leukocyte Esterase Negative (NEG) Urine RBC 11-20 /HPF (0-2) Urine WBC 0 /HPF (0-4) Urine Squamous Epithelial Cells Occ /LPF Urine Bacteria 0 /HPF (0-FEW) Urine Mucus Slight /LPF Test 05/07/19 11:41 Glucose (Fingerstick) 127 mg/dL (70-99) Microbiology 05/05/19 Blood Culture - Preliminary, Resulted NO GROWTH AFTER 2 DAYS Medication Medications Current Medications Dextrose 250 ml PRN Q15MIN PRN IV SEE COMMENTS; Start 05/06/19 at 21:00; Stop 05/07/19 at 13:56; Status DC Dextrose (Dextrose 50%-Water Syringe) 12.5 gm PRN Q15MIN PRN IV SEE COMMENTS; Start 05/06/19 at 21:00; Stop 05/07/19 at 13:56; Status DC Influenza Virus Vaccine Quadrival (Afluria Quad 2018-20 (3yr Up) Syringe) 0.5 ml ONCE ONCE VAX IM ; Start 05/07/19 at 09:00; Stop 05/07/19 at 09:01; Status DC Insulin Human Lispro (HumaLOG) 0-5 UNITS TIDWMEALS SQ ; Start 05/07/19 at 08:00; Stop 05/07/19 at 13:56; Status DC Potassium Chloride (Klor-Con) 20 meq DAILYWBKFT PO Last administered on 05/07/19at 09:00; Start 05/07/19 at 08:00; Stop 05/07/19 at 13:56; Status DC Comment Review of Relevant I have reviewed the following items jj (where applicable) has been applied. RAFA MARTINES MD May 07, 2019 17:59
[2019-05-08 00:07] LABS: HEMOGLOBIN A1C 5.8 % (4.8-5.6)
== END 2019-05-07 13:50 | disposition home or self-care (01) | DRG 441 ==
LOC: ER 13:21 → 6 SOUTH 16:12
PROVIDERS: ADMIT Internal Medicine; ATTEND Internal Medicine
DX: K72.90 Hepatic failure, unspecified without coma (principal); J96.01 Acute respiratory failure with hypoxia; G93.41 Metabolic encephalopathy; E72.20 Disorder of urea cycle metabolism, unspecified; D75.89 Other specified diseases of blood and blood-forming organs; E11.9 Type 2 diabetes mellitus without complications; E66.9 Obesity, unspecified; E87.6 Hypokalemia; Y90.8 Blood alcohol level of 240 mg/100 ml or more; F32.9 Major depressive disorder, single episode, unspecified; F41.9 Anxiety disorder, unspecified; K76.0 Fatty (change of) liver, not elsewhere classified; I10 Essential (primary) hypertension; F10.129 Alcohol abuse with intoxication, unspecified; Z82.49 Family history of ischemic heart disease and other diseases of the circulatory system; Z68.31 Body mass index [BMI] 31.0-31.9, adult
CPT/HCPCS: 36415; 71046; 76700; 80048; 80053; 80307; 81001; 82140; 82947; 82962; 83036; 83690; 85025; 85610; 87040; 93005; 94640; 94760; 96361; 96374; G0480; J1650; J1815; J2060; J2405; J7030; J7620; 99285-25; G0378